=== PATIENT | male | born 1955 | race Caucasian/White ===

== ENCOUNTER → 2017-12-14 08:00 | Outpatient (CLI) | payer MEDICARE, MEDICAID, SELFPAY ==
--- NOTE | 2017-12-14 | DI.RAD.S_ITS ---
PROCEDURE: XR FOOT LT MIN 3V INDICATIONS: LEFT FOOT AND LEFT ANKLE PAIN TECHNIQUE: 3 views of the foot were acquired. COMPARISON: [facility], , FOOT 3V LEFT, 09/11/2017, 9:27. FINDINGS: Bones: Generalized osteopenia. Large traction enthesophyte base of the fifth metatarsal again noted. Hammertoe deformities. Mild degenerative joint disease at the first MTPJ. Flattening of the second metatarsal head again noted. No foot bone fractures or dislocations, healing fracture distal tibial shaft on the lateral view.. No suspicious bony lesions. Soft tissues: No tibiotalar joint effusion. Achilles tendon appears normal. IMPRESSION: 1. Healing fracture distal tibial shaft. No foot bone fractures seen. 2. Prominent enthesophytes fifth metatarsal base and posterior calcaneus. 3. Generalized osteopenia. Mild degenerative joint disease. Hammertoe deformities. Dictated by: Roberto Cuellar M.D. on 12/14/2017 at 8:40 Approved by: Roberto Cuellar M.D. on 12/14/2017 at 8:44
--- NOTE | 2017-12-14 | DI.RAD.S_ITS ---
PROCEDURE: XR ANKLE LT MIN 3V INDICATIONS: LEFT FOOT AND LEFT ANKLE PAIN TECHNIQUE: 3 views of the ankle were acquired. COMPARISON: [facility], , ANKLE 3 VIEWS LEFT, 09/11/2017, 9:27. FINDINGS: Bones: Irregular radiolucency with surrounding sclerosis and overlying callus formation involves the distal one third of the tibial diaphysis medially, compatible with healing stress fracture. Distal fibula appears intact. Degenerative tibiotalar joint disease unchanged. Large osteophytes of the posterior calcaneus again noted. Soft tissues: No tibiotalar joint effusion. Achilles tendon appears normal. IMPRESSION: 1. Healing stress fracture medial aspect of the distal tibial diaphysis. 2. Large calcaneal enthesophytes. 3. Tibiotalar arthritis. Dictated by: Roberto Cuellar M.D. on 12/14/2017 at 8:36 Approved by: Roberto Cuellar M.D. on 12/14/2017 at 8:40
== END ==
PROVIDERS: PCP Physician Assistant; Visit Provider Podiatrist
DX: M19.072 Primary osteoarthritis, left ankle and foot (principal); M77.32 Calcaneal spur, left foot; M25.572 Pain in left ankle and joints of left foot; M84.362A Stress fracture, left tibia, initial encounter for fracture; M85.872 Other specified disorders of bone density and structure, left ankle and foot; M20.42 Other hammer toe(s) (acquired), left foot
CPT/HCPCS: 73610; 73630

== ENCOUNTER → 2018-04-26 07:29 | Outpatient (CLI) | payer MEDICARE, MEDICAID, SELFPAY ==
[2018-04-26 08:44] LABS: Alanine Aminotransferase 26 IU/L (21-72); Albumin 4.5 g/dL (3.5-5.0); Albumin Globulin Ratio 1.5 (1.0-2.8); Alkaline Phosphatase 74 U/L (38-126); Aspartate Aminotransferase 22 IU/L (17-59); BUN Creatinine Ratio 13.8 (6-22); Bilirubin Total 0.9 mg/dL (0.2-1.3); Blood Urea Nitrogen 11 mg/dL (9-20); Calcium 9.1 mg/dL (8.4-10.2); Carbon Dioxide 34 mmol/L (22-32); Chloride 102 mmol/L (98-107); Cholesterol 114 mg/dL (140-199); Estimated Glomerular Filt Rate > 60.0 mL/min (>60); Glucose 84 mg/dL (80-110); HDL Cholesterol 30 mg/dL (40-60); HEMOLYSIS 44 (0-50); LDL Cholesterol Calculated 57 mg/dL (<100); Potassium 3.9 mmol/L (3.4-5.1); Sodium 143 mmol/L (137-145); Total Protein 7.5 g/dL (6.3-8.2); Triglycerides 135 mg/dL (35-150)
[2018-04-26 08:58] LABS: Hemoglobin A1C% w Est Avg Glu 6.4 % (4.0-6.0)
== END ==
PROVIDERS: PCP Physician Assistant; Visit Provider Physician Assistant
DX: E11.8 Type 2 diabetes mellitus with unspecified complications (principal); I10 Essential (primary) hypertension; E78.2 Mixed hyperlipidemia
CPT/HCPCS: 36415; 80053; 80061; 83036

== ENCOUNTER → 2018-06-29 10:05 | Outpatient (CLI) | payer MEDICARE, MEDICAID, SELFPAY ==
--- NOTE | 2018-06-29 10:21 | DI.CT.S_ITS ---
PROCEDURE: CT CHEST WO CON INDICATIONS: MYASTHENIA GRAVIS TECHNIQUE: Noncontrast 5 mm thick sections acquired from the pulmonary apices to the posterior costophrenic angles. 7 mm thick coronal and sagittal MIP reformats were then acquired. For radiation dose reduction, the following was used: automated exposure control, adjustment of mA and/or kV according to patient size. COMPARISON: [facility], CT, ABDOMEN/PELVIS WITH CONTRAST, 08/24/2011, 8:12. [facility], CT, ABDOMEN/PELVIS WITH CONTRAST, 04/06/2012, 17:22. FINDINGS: Image quality: Excellent. Lungs and pleura: There are lung nodules bilaterally. Three subcentimeter nodules are seen in the right middle lobe measuring 3-4 mm (series 3 image 36, 41 and 43). There is a 6 cm nodule in the left lower lobe (series 3 image 57). No acute air space opacities. No pleural effusions or pneumothorax. Central and peripheral airways are patent and normal in caliber. Mediastinum: Heart size is normal. No pericardial effusion. No mediastinal adenopathy by size criteria. Thoracic aorta and central pulmonary arteries are normal in size. Esophagus is normal in caliber. No hiatal hernia. Bones and chest wall: Multiple old fractures bilaterally. No vertebral body compression fractures. No axillary or supraclavicular adenopathy by size criteria. Thyroid gland is normal. Abdomen: Gallbladder is surgically absent. There are small air collections in the liver, presumably secondary to pneumobilia. There is a borderline enlarged periportal lymph node measuring 1.7 x 2.6 cm. IMPRESSION: 1. Bilateral pulmonary nodules. Recommend followup imaging (please see enclosed followup recommendation). 2. No mediastinal lymphadenopathy. 3. Cholecystectomy. Small air collections in liver is presumably secondary to pneumobilia but portal venous gas cannot be excluded. Patients with portal venous gas are usually critically ill. Recommend clinical correlation and followup. 4. Mild periportal lymphadenopathy. This finding is nonspecific and may be secondary to infectious, inflammatory or neoplastic etiology. Recommend clinical correlation and follow up. 5. Multiple old rib fractures bilaterally likely sequelae of old traumatic injuries. Fleischner Society criteria for SOLID lung nodule followup. Nodule size (mm)Low-risk patientHigh-risk patient?4No follow-up neededFollow-up at 12 mo; if no change, no further follow-up>8-7Czjtox-oa CT at 12 mo; if no change, no further follow-up needed.Initial follow-up CT at 6-12 mo, then 18-24 mo if no change. >6-8Initial follow-up CT at 6-12 mo, then 18-24 mo if no change. Initial follow-up CT at 3-6 mo, then 9-12 mo and 24 mo if no change. >8Follow-up CT at 3, 9, 24 mo. Or PET and/or biopsy.Same as for low-risk pts. Dictated by: Orion Knight M.D. on 06/29/2018 at 12:01 Approved by: Orion Knight M.D. on 06/29/2018 at 12:14
== END ==
PROVIDERS: Family Provider Physician Assistant; PCP Physician Assistant; Visit Provider Ophthalmology
DX: G70.00 Myasthenia gravis without (acute) exacerbation (principal); R91.8 Other nonspecific abnormal finding of lung field; Z90.49 Acquired absence of other specified parts of digestive tract; R59.0 Localized enlarged lymph nodes; Z87.81 Personal history of (healed) traumatic fracture
CPT/HCPCS: 71250

== ENCOUNTER → 2018-10-23 07:36 | Outpatient (CLI) | payer MEDICARE, MEDICAID, SELFPAY ==
[2018-10-23 09:13] LABS: Hemoglobin A1C% w Est Avg Glu 6.5 % (4.0-6.0)
[2018-10-23 09:45] LABS: Alanine Aminotransferase 24 IU/L (21-72); Albumin 4.1 g/dL (3.5-5.0); Albumin Globulin Ratio 1.6 (1.0-2.8); Alkaline Phosphatase 77 U/L (38-126); Aspartate Aminotransferase 15 IU/L (17-59); Bilirubin Total 0.4 mg/dL (0.2-1.3); Blood Urea Nitrogen 8 mg/dL (9-20); Calcium 9.1 mg/dL (8.4-10.2); Carbon Dioxide 30 mmol/L (22-32); Chloride 104 mmol/L (98-107); Cholesterol 105 mg/dL (140-199); Estimated Glomerular Filt Rate > 60.0 mL/min (>60); Globulin 2.6 g/dL (1.7-4.1); Glucose 120 mg/dL (80-110); HDL Cholesterol 30 mg/dL (40-60); HEMOLYSIS < 15 (0-50); LDL Cholesterol Calculated 39 mg/dL (<100); Potassium 3.6 mmol/L (3.4-5.1); Sodium 141 mmol/L (137-145); Total Protein 6.7 g/dL (6.3-8.2); Triglycerides 181 mg/dL (35-150)
[2018-10-23 12:07] LABS: Creatinine Urine Random 174.2 mg/dL
[2018-10-23 13:03] LABS: Microalbumi Creatinin Ratio Ur 239.3 ug/mg CR (<30); Microalbumin Urine Random 41.7 mg/dL (0-1.6)
== END ==
PROVIDERS: Family Provider Physician Assistant; PCP Physician Assistant; Visit Provider Physician Assistant
DX: E11.8 Type 2 diabetes mellitus with unspecified complications (principal); E78.2 Mixed hyperlipidemia; I10 Essential (primary) hypertension; Z79.4 Long term (current) use of insulin
CPT/HCPCS: 36415; 80053; 80061; 82043; 82570; 83036

== ENCOUNTER → 2019-02-12 07:12 | Outpatient (CLI) | payer MEDICARE, MEDICAID, SELFPAY ==
[2019-02-12 08:08] LABS: Hemoglobin A1C% w Est Avg Glu 6.9 % (4.0-6.0)
[2019-02-12 08:17] LABS: Alanine Aminotransferase 18 IU/L (21-72); Albumin 3.9 g/dL (3.5-5.0); Albumin Globulin Ratio 1.3 (1.0-2.8); Alkaline Phosphatase 86 U/L (38-126); Aspartate Aminotransferase 16 IU/L (17-59); BUN Creatinine Ratio 12.9 (6-22); Bilirubin Total 0.5 mg/dL (0.2-1.3); Blood Urea Nitrogen 9 mg/dL (9-20); Carbon Dioxide 30 mmol/L (22-32); Chloride 105 mmol/L (98-107); Cholesterol 113 mg/dL (140-199); Estimated Glomerular Filt Rate > 60.0 mL/min (>60); Globulin 2.9 g/dL (1.7-4.1); Glucose 127 mg/dL (80-110); HDL Cholesterol 33 mg/dL (40-60); HEMOLYSIS < 15 (0-50); LDL Cholesterol Calculated 49 mg/dL (<100); Potassium 3.9 mmol/L (3.4-5.1); Sodium 139 mmol/L (137-145); Total Protein 6.8 g/dL (6.3-8.2); Triglycerides 156 mg/dL (35-150)
[2019-02-12 09:10] LABS: Creatinine Urine Random 136.1 mg/dL
[2019-02-12 09:28] LABS: Microalbumin Urine Random 40.7 mg/dL (0-1.6)
== END ==
PROVIDERS: PCP Physician Assistant; Visit Provider Physician Assistant
DX: E11.29 Type 2 diabetes mellitus with other diabetic kidney complication (principal); E11.8 Type 2 diabetes mellitus with unspecified complications; I10 Essential (primary) hypertension; R80.9 Proteinuria, unspecified; Z79.4 Long term (current) use of insulin
CPT/HCPCS: 36415; 80053; 80061; 82043; 82570; 83036

== ENCOUNTER → 2019-04-05 14:10 | Outpatient (CLI) | payer MEDICARE, MEDICAID, SELFPAY ==
--- NOTE | 2019-04-05 14:12 | DI.US.S_ITS ---
PROCEDURE: US SOFT TISSUE HEAD AND NECK INDICATIONS: PAIN, SWELLING RT JAW/NECK TECHNIQUE: Real-time scanning was performed of the neck region of interest, with image documentation. COMPARISON: None. FINDINGS: Is a sharply demarcated 1.4 x 1.6 x 2.1 cm hypoechoic structure within the right parotid gland, which by appearance (absence of internal blood flow) would argue towards cyst or abscess. The absence of immediate adjacent hyperemia would argue towards cysts over abscess in this circumstance. IMPRESSION: Presumed cyst within the parotid gland, on the right. This cyst measures up to 2.1 cm. It could conceivably represent an unusual manifestation of abscess or even lymph node but that is considered much less likely. CT scanning with contrast may be warranted for more accurate assessment. Dictated by: Azar Farooq M.D. on 04/05/2019 at 15:54 Approved by: Azar Farooq M.D. on 04/05/2019 at 15:56
== END ==
PROVIDERS: PCP Physician Assistant; Visit Provider Nurse Practitioner
DX: L02.91 Cutaneous abscess, unspecified (principal); R68.84 Jaw pain; R22.1 Localized swelling, mass and lump, neck; M54.2 Cervicalgia
CPT/HCPCS: 76536

== ENCOUNTER → 2019-04-12 09:00 | Outpatient (CLI) | payer MEDICARE, MEDICAID, SELFPAY ==
[2019-04-12 10:42] LABS: BUN Creatinine Ratio 14.3 (6-22); Blood Urea Nitrogen 10 mg/dL (9-20); Calcium 9.2 mg/dL (8.4-10.2); Carbon Dioxide 30 mmol/L (22-32); Chloride 105 mmol/L (98-107); Estimated Glomerular Filt Rate > 60.0 mL/min (>60); Glucose 112 mg/dL (80-110); HEMOLYSIS < 15 (0-50); Potassium 4.3 mmol/L (3.4-5.1); Sodium 141 mmol/L (137-145)
--- NOTE | 2019-04-12 10:53 | DI.CT.S_ITS ---
PROCEDURE: CT SOFT TISSUE NECK W CON INDICATIONS: abscess TECHNIQUE: After the administration of intravenous contrast, 3.0 mm axial sections acquired from the sella to the aortic arch. Additional oblique axial 3.0 mm sections acquired through the pharynx. 3 mm thick coronal and sagittal reformats were generated. For radiation dose reduction, the following was used: automated exposure control. COMPARISON: [facility], SOFT TISSUE HEAD AND NECK, 04/05/2019, 15:09. FINDINGS: Image quality: Excellent. Lymph nodes: No enlarged lymph nodes seen throughout the neck. Vessels: Visualized vasculature appears patent. Neck spaces: The oropharynx, nasopharynx, and pharynx demonstrate no mucosal lesions. The vocal cords, false vocal cords, pyriform sinuses, epiglottis, vallecula, and tongue base all appear normal. Extramucosal spaces appear unremarkable. Glands: The submandibular glands appear normal. There is a rim-enhancing, low-attenuation mass within the inferior right parotid gland measuring 17 mm AP by 19 mm transverse. Areas of additional enhancing nodularity are noted along the inferior most aspect of the lesion. In addition, there is an enhancing soft tissue focus along the anterior superior right parotid gland measuring 1.1 cm AP by 1.1 cm transverse. Thyroid gland are unremarkable. Miscellaneous: Visualized brain and orbits appear normal. Lung apices appear clear. Superficial soft tissues appear normal. Bones: Calvarium and skull base osseous structures demonstrates somewhat mottled appearance. No priors are available for comparison. Visualized sinuses and mastoids appear unremarkable. IMPRESSION: 1. Rim-enhancing low attenuation mass within the inferior right parotid gland concerning for neoplasm. Other etiologies such as infection or inflammation is felt to be less likely given overall appearance and lack of significant surrounding inflammatory change. Further evaluation with biopsy is recommended. 2. Enhancing mass is noted in the anterior aspect of the right parotid gland. Further evaluation with biopsy, given the appearance of above described mass as well as differential which can include commonly identified pleomorphic adenoma in Warthin's tumor. 3. Somewhat mottled appearance of the calvarial and skull base osseous structures. No priors are available for comparison. They are not visualized in their entirety. Further evaluation with bone scan is recommended. Dictated by: Kathryn Evans M.D. on 04/12/2019 at 13:19 Approved by: Kathryn Evans M.D. on 04/12/2019 at 13:35
== END ==
PROVIDERS: PCP Physician Assistant; Visit Provider Nurse Practitioner
DX: Z01.818 Encounter for other preprocedural examination (principal); M27.2 Inflammatory conditions of jaws; R22.0 Localized swelling, mass and lump, head
CPT/HCPCS: 36415; 70470; 70491; 80048

== ENCOUNTER → 2019-04-30 07:18 | Outpatient (CLI) | payer MEDICARE, MEDICAID, SELFPAY ==
--- NOTE | 2019-04-30 07:23 | DI.NM.S_ITS ---
PROCEDURE: NM BONE SCAN WHOLE BODY RADIOPHARMACEUTICAL: 21.1 mCi Tc-99m MDP IV. INDICATIONS: Abnormal soft tissue CT neck; bone abnormality base of skull reported to raise concern for heterogeneity of the skull base calvarium, in a patient with a right parotid mass like structure. Evaluate for metastatic disease. TECHNIQUE: Delayed whole-body scintigrams were obtained approximately 3-4 hours after intravenous injection of radiotracer. Anterior and posterior views were acquired from vertex to feet. Additional left and right oblique views of the head and neck were obtained. COMPARISON: [facility], BONE SCAN WHOLE BODY, 11/08/2007, 11:51. [facility], CR, KNEE 3V LEFT, 06/13/2016, 10:31. [facility], CT, CT SOFT TISSUE NECK W CON, 04/12/2019, 10:57. FINDINGS: In the area of prior CT concern from 04/12/19 the skull base appears free of abnormal isotope uptake. Mild elevated uptake is symmetric along the ethmoid air cell regions bilaterally, where minimal mucosal thickening can be seen on the prior CT scanning, presumably inflammatory in origin. Note is made of degenerative changes along the thoracic spine, and at the lower lumbosacral spine greater on the left than the right. Patellar isotope deposition is prominent within the right patella, and there is mild heterogeneity of isotope uptake at the left knee joint and tibial diaphysis, in this patient with prior trauma and a medullary stacey through that area. Prominent asymmetric left slightly greater than right degenerative changes at the shoulders. IMPRESSION: No osseous metastatic disease is found. Degenerative changes the likely cause for the prominent uptake at the right patella but trauma could explain this appearance. Mild heterogeneity of the left tibial isotope deposition, consistent with the presence of a medullary stacey through that area. Dictated by: Azar Farooq M.D. on 04/30/2019 at 16:24 Approved by: Azar Farooq M.D. on 04/30/2019 at 16:30
== END ==
PROVIDERS: PCP Physician Assistant; Visit Provider Physician Assistant
DX: R93.0 Abnormal findings on diagnostic imaging of skull and head, not elsewhere classified (principal); M89.9 Disorder of bone, unspecified
CPT/HCPCS: 78306; A9503

== ENCOUNTER → 2019-05-06 09:59 | Outpatient (CLI) | payer MEDICARE, MEDICAID, SELFPAY ==
[2019-05-06 12:09] LABS: Add Manual Diff / Slide Review NO; Basophils Absolute Auto 100 /uL (0-100); Basophils Percent Auto 0.9 % (0-2); Eosinophils Absolute Auto 300 /uL (0-450); Eosinophils Percent Auto 4.2 % (2-4); Hematocrit 44.3 % (41-53); Hemoglobin 15.1 g/dL (13.5-17.5); Lymphocytes Absolute Auto 2400 /uL (1100-4500); Lymphocytes Percent Auto 33.9 % (25-40); Mean Corpuscular HGB Conc 34.1 % (30-36); Mean Corpuscular Hemoglobin 30.6 PG (26-34); Mean Corpuscular Volume 89.9 fL (80-100); Monocytes Absolute Auto 500 /uL (0-900); Monocytes Percent Auto 7.7 % (3-14); Neutrophils Absolute Auto 3700 /uL (1500-7000); Neutrophils Percent Auto 53.3 % (50-75); Platelet Count 201 X10^3/uL (150-400); Red Blood Cell Count 4.93 X10^6/uL (4.5-5.9); Red Cell Distribution Width 15.3 % (11.6-14.8)
[2019-05-06 12:17] LABS: Hemoglobin A1C% w Est Avg Glu 6.5 % (4.0-6.0)
[2019-05-06 12:47] LABS: Alanine Aminotransferase 27 IU/L (21-72); Albumin 4.3 g/dL (3.5-5.0); Albumin Globulin Ratio 1.5 (1.0-2.8); Alkaline Phosphatase 80 U/L (38-126); Aspartate Aminotransferase 25 IU/L (17-59); BUN Creatinine Ratio 17.5 (6-22); Bilirubin Total 0.7 mg/dL (0.2-1.3); Blood Urea Nitrogen 14 mg/dL (9-20); Calcium 9.4 mg/dL (8.4-10.2); Carbon Dioxide 32 mmol/L (22-32); Chloride 106 mmol/L (98-107); Cholesterol 121 mg/dL (140-199); Estimated Glomerular Filt Rate > 60.0 mL/min (>60); Globulin 2.8 g/dL (1.7-4.1); Glucose 112 mg/dL (80-110); HDL Cholesterol 29 mg/dL (40-60); HEMOLYSIS < 15 (0-50); LDL Cholesterol Calculated 69 mg/dL (<100); Potassium 4.3 mmol/L (3.4-5.1); Sodium 143 mmol/L (137-145); Total Protein 7.1 g/dL (6.3-8.2); Triglycerides 113 mg/dL (35-150)
[2019-05-06 13:05] LABS: Prostate Specific Antigen Scrn 0.773 ng/mL (0.1-4.0)
[2019-05-06 15:18] LABS: Creatinine Urine Random 254.5 mg/dL
[2019-05-06 15:30] LABS: Vitamin D 25 Hydroxy (D3) 50.1 ng/mL (30.0-100.0)
[2019-05-06 16:08] LABS: Microalbumi Creatinin Ratio Ur 192.9 ug/mg CR (<30); Microalbumin Urine Random 49.1 mg/dL (0-1.6)
== END ==
PROVIDERS: PCP Physician Assistant; Visit Provider Physician Assistant
DX: Z12.5 Encounter for screening for malignant neoplasm of prostate (principal); M81.0 Age-related osteoporosis without current pathological fracture; E11.8 Type 2 diabetes mellitus with unspecified complications; E78.2 Mixed hyperlipidemia; G70.00 Myasthenia gravis without (acute) exacerbation; I10 Essential (primary) hypertension
CPT/HCPCS: 36415; 80053; 80061; 82043; 82306; 82570; 83036; 85025; G0103

== ENCOUNTER → 2019-07-08 07:59 | Outpatient (CLI) | payer MEDICARE, MEDICAID, SELFPAY ==
--- NOTE | 2019-07-08 09:00 | DI.CT.S_ITS ---
PROCEDURE: CT CHEST WO CON INDICATIONS: Pulmonary nodules - follow up on 06/2018 CT TECHNIQUE: Noncontrast 2.0-2.5 mm thick sections acquired from the pulmonary apices to the posterior costophrenic angles. 7 mm thick axial MIP and 5 mm coronal and sagittal reformats were then acquired. A low radiation dose technique was utilized. COMPARISON: , CT, CT CHEST WO CON, 06/29/2018, 10:16. FINDINGS: Image quality: Diagnostic, given the low radiation dose technique. Lungs and pleura: Right middle lobe lung nodules measuring 6 mm (3/187), 5 mm (3/212), and 4 mm (3/219), are stable when measured on lung windows. 10 mm solid left posterior medial lung base nodule (3/284), is also stable. An ovoid nodule in the medial left upper lobe (3/110) measures 1.3 x 1.0 cm, stable size. 2 tiny right posterior lateral lower lobe subpleural high density nodules are stable. No new nodules. No acute airspace disease. Mild central peribronchial thickening, particularly in the right lower lobe is present. No pleural effusions or calcified pleural plaques. Mediastinum: Heart size is normal. No pericardial effusion. No mediastinal adenopathy by size criteria. Thoracic aorta and central pulmonary arteries are normal in size. Esophagus is normal in caliber. No hiatal hernia. Bones and chest wall: Deformities of remote, healed bilateral posterolateral rib fractures. Dense bridging osteophytosis in the mid thoracic spine. No suspicious bony lesions. No vertebral body compression fractures. No axillary or supraclavicular adenopathy by size criteria. Thyroid gland appears normal. Abdomen: Visualized upper abdomen demonstrates cholecystectomy and scant pneumobilia. IMPRESSION: 1. Stable bilateral lung nodules. Continual annual followup CT until 2 year stability is reached. 2. Mild right lower lobe peribronchial thickening suggesting bronchitis. Correlate clinically. 3. Dense bridging osteophytosis in the thoracic spine. Fleischner Society criteria for SOLID lung nodule followup. Nodule size (mm)Low-risk patientHigh-risk patient<6 (single or multiple)No routine followup.Optional CT at 12 months. 6-8 (single or multiple)CT at 6-12 months, then optional CT at 18-24 mo.CT at 6-12 months, then CT at 18-24 months. >8 (single)CT at 3 months, PET-CT, or biopsy. Same as for low-risk pts. >8 (multiple)CT at 3-6 months, then optional CT at 18-24 mo.CT at 3-6 months, then CT at 18-24 months. Recommendations do not apply to lung cancer screening, patients with immunosuppression, or patients with known primary cancer. Dictated by: Denisse Luther M.D. on 07/08/2019 at 14:43 Approved by: Denisse Luther M.D. on 07/08/2019 at 14:57
== END ==
PROVIDERS: PCP Physician Assistant; Visit Provider Physician Assistant
DX: R91.8 Other nonspecific abnormal finding of lung field (principal); M25.78 Osteophyte, vertebrae
CPT/HCPCS: 71250

== ENCOUNTER → 2019-12-25 07:40 | Outpatient (CLI) | payer MEDICARE, MEDICAID, SELFPAY ==
[2019-12-25 08:32] LABS: Hemoglobin A1C% w Est Avg Glu 6.5 % (4.0-6.0)
[2019-12-25 08:34] LABS: Alanine Aminotransferase 19 IU/L (<50); Albumin 4.1 g/dL (3.5-5.0); Albumin Globulin Ratio 1.4 (1.0-2.8); Alkaline Phosphatase 78 U/L (38-126); Aspartate Aminotransferase 22 IU/L (17-59); BUN Creatinine Ratio 16.4 (6-22); Bilirubin Total 0.5 mg/dL (0.2-1.3); Blood Urea Nitrogen 12 mg/dL (9-20); Calcium 9.3 mg/dL (8.4-10.2); Carbon Dioxide 31 mmol/L (22-32); Chloride 108 mmol/L (98-107); Cholesterol 103 mg/dL (140-199); Estimated Glomerular Filt Rate > 60.0 mL/min (>60); Globulin 2.9 g/dL (1.7-4.1); Glucose 119 mg/dL (80-110); HDL Cholesterol 24 mg/dL (40-60); HEMOLYSIS < 15 (0-50); LDL Cholesterol Calculated 51 mg/dL (<100); Potassium 4.2 mmol/L (3.4-5.1); Sodium 142 mmol/L (137-145); Triglycerides 142 mg/dL (35-150)
[2019-12-25 08:51] LABS: Free T3, Triiodothyronine Free 3.64 pg/mL (2.77-5.27); Free T4, Direct Thyroxine 0.86 ng/dL (0.78-2.19)
[2019-12-25 09:04] LABS: Thyroid Stimulating Hormone 1.72 uIU/mL (0.47-4.68)
[2019-12-25 12:19] LABS: Creatinine Urine Random 83.9 mg/dL
[2019-12-25 12:36] LABS: Microalbumi Creatinin Ratio Ur 252.6 ug/mg CR (<30); Microalbumin Urine Random 21.2 mg/dL (0-1.6)
== END ==
PROVIDERS: PCP Nurse Practitioner; Referring Provider Nurse Practitioner; Visit Provider Nurse Practitioner
DX: E11.8 Type 2 diabetes mellitus with unspecified complications (principal); E66.01 Morbid (severe) obesity due to excess calories; E78.2 Mixed hyperlipidemia; I10 Essential (primary) hypertension; Z79.899 Other long term (current) drug therapy
CPT/HCPCS: 36415; 80053; 80061; 82043; 82570; 83036; 84439; 84443; 84481

== ENCOUNTER → 2020-03-03 07:45 | Outpatient (CLI) | payer MEDICARE, MEDICAID, SELFPAY ==
[2020-03-03 09:04] LABS: Alanine Aminotransferase 19 IU/L (<50); Albumin Globulin Ratio 1.5 (1.0-2.8); Alkaline Phosphatase 82 U/L (38-126); Aspartate Aminotransferase 18 IU/L (17-59); BUN Creatinine Ratio 16.9 (6-22); Bilirubin Total 0.8 mg/dL (0.2-1.3); Blood Urea Nitrogen 12 mg/dL (9-20); Carbon Dioxide 31 mmol/L (22-32); Chloride 107 mmol/L (98-107); Cholesterol 105 mg/dL (140-199); Estimated Glomerular Filt Rate > 60.0 mL/min (>60); Globulin 2.6 g/dL (1.7-4.1); Glucose 106 mg/dL (80-110); HDL Cholesterol 31 mg/dL (40-60); HEMOLYSIS < 15 (0-50); LDL Cholesterol Calculated 52 mg/dL (<100); Potassium 4.1 mmol/L (3.4-5.1); Sodium 139 mmol/L (137-145); Total Protein 6.6 g/dL (6.3-8.2); Triglycerides 110 mg/dL (35-150)
== END ==
PROVIDERS: PCP Nurse Practitioner; Referring Provider Hospitalist; Visit Provider Hospitalist
DX: E78.5 Hyperlipidemia, unspecified (principal); I25.118 Atherosclerotic heart disease of native coronary artery with other forms of angina pectoris
CPT/HCPCS: 36415; 80053; 80061

== ENCOUNTER → 2020-05-11 06:22 | Outpatient (CLI) | payer MEDICARE, MEDICAID, SELFPAY ==
--- NOTE | 2020-05-11 07:07 | DI.CT.S_ITS ---
PROCEDURE: CT CHEST WO CON INDICATIONS: Pulmonary nodules - follow up on 06/2019 CT TECHNIQUE: Noncontrast 2.0-2.5 mm thick sections acquired from the pulmonary apices to the posterior costophrenic angles. 7 mm thick axial MIP and 5 mm coronal and sagittal reformats were then acquired. A low radiation dose technique was utilized. COMPARISON: [facility], CT, CT CHEST WO CON, 06/29/2018, 10:16. [facility], CT, CT CHEST WO CON, 07/08/2019, 8:10. FINDINGS: Image quality: Diagnostic, given the low radiation dose technique. Lungs and pleura: A few small pulmonary nodules. For example: -right middle lobe subpleural 6 mm, (3/185), unchanged since 06/29/2018. -right middle lobe subpleural 5 mm, (3/220), unchanged since 2018. Unchanged since 2011. -left upper lobe medially 1.3 x 0.9 cm, (3/108), unchanged since 2018. -left lower lobe juxta diaphragmatic 0.9 x 0.7 cm, (3/268), unchanged since 2018. More remotely is 0.7 x 0.6 cm in 2011. No new or enlarging pulmonary nodules. A few calcified granuloma. No acute airspace opacity. No pleural effusion. No pneumothorax. Airways are clear. Mediastinum: Heart size is normal. No pericardial effusion. No mediastinal adenopathy by size criteria. Thoracic aorta and central pulmonary arteries are normal in size. Esophagus is normal in caliber. No hiatal hernia. Bones and chest wall: No suspicious bony lesions. No vertebral body compression fractures. Multilevel anterior vertebral body bridging osteophytes. 1 prior bilateral rib fractures. No axillary or supraclavicular adenopathy by size criteria. Thyroid gland is unremarkable. Abdomen: Pneumobilia is again seen. Hepatic steatosis. Adrenal glands partially visualized. No free fluid in the upper abdomen. IMPRESSION: 1. Stable bilateral pulmonary nodules since at least 06/29/2018 (nearly 2 years). Largest measuring 1.1 cm mean diameter in the left upper lobe. Some of the inferiorly located nodules are seen dating back to 2011. 2. No new or enlarging pulmonary nodules. 3. No adenopathy. 4. No acute airspace opacity. Fleischner Society criteria for SOLID lung nodule followup. Nodule size (mm)Low-risk patientHigh-risk patient<6 (single or multiple)No routine followup.Optional CT at 12 months. 6-8 (single or multiple)CT at 6-12 months, then optional CT at 18-24 mo.CT at 6-12 months, then CT at 18-24 months. >8 (single)CT at 3 months, PET-CT, or biopsy. Same as for low-risk pts. >8 (multiple)CT at 3-6 months, then optional CT at 18-24 mo.CT at 3-6 months, then CT at 18-24 months. Fleischner Society criteria for SUB-SOLID lung nodule followup. Solitary pure ground-glass nodules<6 mm (ground glass or part solid)No followup needed. 6 mm or larger (ground glass)CT at 6-12 months to confirm persistence, then CT every 2 years until 5 years.6 mm or larger (part solid)CT at 3-6 months to confirm persistence, then annual CT until 5 years if unchanged and solid component remains <6 mm. Multiple sub-solid nodules<6 mmCT at 3-6 months, then CT consider at 2 & 4 years for high risk patients. [address] at 3-6 months. Subsequent management based on most suspicious lesions. Recommendations do not apply to lung cancer screening, patients with immunosuppression, or patients with known primary cancer. Dictated by: Blair Rodriguez M.D. on 05/11/2020 at 9:33 Approved by: Blair Rodriguez M.D. on 05/11/2020 at 9:51
== END ==
PROVIDERS: PCP Nurse Practitioner; Referring Provider Nurse Practitioner; Visit Provider Nurse Practitioner
DX: R91.8 Other nonspecific abnormal finding of lung field (principal)
CPT/HCPCS: 71250

== ENCOUNTER → 2020-06-19 07:39 | Outpatient (CLI) | payer MEDICARE, MEDICAID, SELFPAY ==
[2020-06-19 08:33] LABS: Alanine Aminotransferase 15 IU/L (<50); Albumin 4.2 g/dL (3.5-5.0); Albumin Globulin Ratio 1.4 (1.0-2.8); Alkaline Phosphatase 79 U/L (38-126); Aspartate Aminotransferase 17 IU/L (17-59); BUN Creatinine Ratio 19.7 (6-22); Bilirubin Total 0.6 mg/dL (0.2-1.3); Blood Urea Nitrogen 13 mg/dL (9-20); Calcium 9.4 mg/dL (8.4-10.2); Carbon Dioxide 35 mmol/L (22-32); Chloride 108 mmol/L (98-107); Cholesterol 112 mg/dL (140-199); Estimated Glomerular Filt Rate > 60.0 mL/min (>60); Globulin 2.9 g/dL (1.7-4.1); Glucose 109 mg/dL (80-110); HDL Cholesterol 29 mg/dL (40-60); HEMOLYSIS < 15 (0-50); LDL Cholesterol Calculated 60 mg/dL (<100); Potassium 4.2 mmol/L (3.4-5.1); Sodium 139 mmol/L (137-145); Total Protein 7.1 g/dL (6.3-8.2); Triglycerides 116 mg/dL (35-150)
[2020-06-19 08:36] LABS: Hemoglobin A1C% w Est Avg Glu 6.4 % (4.0-6.0)
[2020-06-19 09:15] LABS: Free T3, Triiodothyronine Free 3.19 pg/mL (2.77-5.27); Free T4, Direct Thyroxine 0.83 ng/dL (0.78-2.19)
[2020-06-19 09:29] LABS: Thyroid Stimulating Hormone 1.82 uIU/mL (0.47-4.68)
[2020-06-19 09:32] LABS: Creatinine Urine Random 209.1 mg/dL; Microalbumi Creatinin Ratio Ur 186.5 ug/mg CR (<30)
== END ==
PROVIDERS: PCP Nurse Practitioner; Referring Provider Nurse Practitioner; Visit Provider Nurse Practitioner
DX: E11.42 Type 2 diabetes mellitus with diabetic polyneuropathy (principal); E11.8 Type 2 diabetes mellitus with unspecified complications; E66.01 Morbid (severe) obesity due to excess calories; E78.2 Mixed hyperlipidemia; I10 Essential (primary) hypertension; Z79.4 Long term (current) use of insulin
CPT/HCPCS: 36415; 80053; 80061; 82043; 82570; 83036; 84439; 84443; 84481

== ENCOUNTER → 2020-09-18 07:38 | Outpatient (CLI) | payer MEDICARE, MEDICAID, SELFPAY ==
[2020-09-18 08:54] LABS: Hemoglobin A1C% w Est Avg Glu 6.8 % (4.0-6.0)
[2020-09-18 09:02] LABS: Alanine Aminotransferase 24 IU/L (<50); Albumin 4.1 g/dL (3.5-5.0); Albumin Globulin Ratio 1.6 (1.0-2.8); Alkaline Phosphatase 80 U/L (38-126); Aspartate Aminotransferase 25 IU/L (17-59); BUN Creatinine Ratio 20.3 (6-22); Bilirubin Total 0.8 mg/dL (0.2-1.3); Blood Urea Nitrogen 14 mg/dL (9-20); Calcium 9.2 mg/dL (8.4-10.2); Carbon Dioxide 33 mmol/L (22-32); Chloride 104 mmol/L (98-107); Estimated Glomerular Filt Rate > 60.0 mL/min (>60); Globulin 2.6 g/dL (1.7-4.1); Glucose 105 mg/dL (80-110); HEMOLYSIS < 15 (0-50); Potassium 4.1 mmol/L (3.4-5.1); Sodium 139 mmol/L (137-145); Total Protein 6.7 g/dL (6.3-8.2)
== END ==
PROVIDERS: PCP Nurse Practitioner; Referring Provider Nurse Practitioner; Visit Provider Nurse Practitioner
DX: E11.8 Type 2 diabetes mellitus with unspecified complications (principal); E78.2 Mixed hyperlipidemia; I10 Essential (primary) hypertension; Z79.4 Long term (current) use of insulin; Z79.899 Other long term (current) drug therapy
CPT/HCPCS: 36415; 80053; 83036

== ENCOUNTER → 2020-09-22 09:47 | Outpatient (CLI) | payer MEDICARE, MEDICAID, SELFPAY ==
[2020-09-26 15:08] LABS: Percent Free Testosterone 2.07 % (1.50-4.20); Testosterone Free 9.38 ng/dL (5.00-21.00); Testosterone Total 453.2 ng/dL (264.0-916.0)
== END ==
PROVIDERS: PCP Nurse Practitioner; Referring Provider Nurse Practitioner; Visit Provider Nurse Practitioner
DX: E66.01 Morbid (severe) obesity due to excess calories (principal); G89.29 Other chronic pain; R53.83 Other fatigue
CPT/HCPCS: 36415; 84402; 84403

== ENCOUNTER → 2021-01-12 09:37 | Outpatient (CLI) | payer MEDICARE, MEDICAID, SELFPAY ==
[2021-01-12 11:02] LABS: Hemoglobin A1C% w Est Avg Glu 6.7 % (4.0-6.0)
== END ==
PROVIDERS: PCP Nurse Practitioner; Referring Provider Nurse Practitioner; Visit Provider Nurse Practitioner
DX: E11.8 Type 2 diabetes mellitus with unspecified complications (principal); Z79.4 Long term (current) use of insulin
CPT/HCPCS: 36415; 83036

== ENCOUNTER → 2021-04-13 08:48 | Outpatient (CLI) | payer MEDICARE, MEDICAID, SELFPAY ==
[2021-04-13 10:23] LABS: Alanine Aminotransferase 25 IU/L (<50); Albumin 3.9 g/dL (3.5-5.0); Albumin Globulin Ratio 1.4 (1.0-2.8); Alkaline Phosphatase 61 U/L (38-126); Aspartate Aminotransferase 25 IU/L (17-59); BUN Creatinine Ratio 23.7 (6-22); Bilirubin Total 0.7 mg/dL (0.2-1.3); Bilirubin Unconjugated 0.6 mg/dL (0.0-1.1); Blood Urea Nitrogen 14 mg/dL (9-20); Calcium 9.1 mg/dL (8.4-10.2); Carbon Dioxide 33 mmol/L (22-32); Chloride 106 mmol/L (98-107); Cholesterol 111 mg/dL (140-199); Estimated Glomerular Filt Rate > 60.0 mL/min (>60); Globulin 2.8 g/dL (1.7-4.1); Glucose 90 mg/dL (80-110); HDL Cholesterol 35 mg/dL (40-60); HEMOLYSIS 21 (0-50); LDL Cholesterol Calculated 50 mg/dL (<100); Potassium 4.1 mmol/L (3.4-5.1); Sodium 140 mmol/L (137-145); Total Protein 6.7 g/dL (6.3-8.2); Triglycerides 131 mg/dL (35-150)
[2021-04-13 10:32] LABS: Free T3, Triiodothyronine Free 3.92 pg/mL (2.77-5.27); Free T4, Direct Thyroxine 0.97 ng/dL (0.78-2.19)
[2021-04-13 10:45] LABS: Prostate Specific Antigen 0.119 ng/mL (0.10-4.00); Thyroid Stimulating Hormone 1.49 uIU/mL (0.47-4.68)
[2021-04-13 11:11] LABS: Creatinine Urine Random 180.9 mg/dL
[2021-04-13 11:28] LABS: Microalbumi Creatinin Ratio Ur 211.1 ug/mg CR (<30); Microalbumin Urine Random 38.2 mg/dL (0-1.6)
== END ==
PROVIDERS: PCP Nurse Practitioner; Referring Provider Nurse Practitioner; Visit Provider Nurse Practitioner
DX: E11.8 Type 2 diabetes mellitus with unspecified complications (principal); E78.2 Mixed hyperlipidemia; Z79.899 Other long term (current) drug therapy; I10 Essential (primary) hypertension; Z79.4 Long term (current) use of insulin; Z12.5 Encounter for screening for malignant neoplasm of prostate
CPT/HCPCS: 36415; 80053; 80061; 80076; 82043; 82570; 84153; 84439; 84443; 84481; G0103

== ENCOUNTER → 2021-07-30 08:49 | Outpatient (CLI) | payer MEDICARE, MEDICAID, SELFPAY ==
[2021-07-30 10:20] LABS: Hemoglobin A1C% w Est Avg Glu 6.5 % (4.0-6.0)
[2021-07-30 10:34] LABS: Creatinine Urine Random 124.4 mg/dL
[2021-07-30 10:44] LABS: Alanine Aminotransferase 19 IU/L (<50); Albumin Globulin Ratio 1.5 (1.0-2.8); Alkaline Phosphatase 80 U/L (38-126); Aspartate Aminotransferase 20 IU/L (17-59); BUN Creatinine Ratio 12.8 (6-22); Bilirubin Total 0.7 mg/dL (0.2-1.3); Blood Urea Nitrogen 10 mg/dL (9-20); Calcium 9.6 mg/dL (8.4-10.2); Carbon Dioxide 33 mmol/L (22-32); Chloride 107 mmol/L (98-107); Cholesterol 128 mg/dL (140-199); Estimated Glomerular Filt Rate > 60.0 mL/min (>60); Globulin 2.6 g/dL (1.7-4.1); Glucose 113 mg/dL (80-110); HDL Cholesterol 37 mg/dL (40-60); HEMOLYSIS < 15 (0-50); LDL Cholesterol Calculated 73 mg/dL (<100); Potassium 4.5 mmol/L (3.4-5.1); Sodium 142 mmol/L (137-145); Total Protein 6.6 g/dL (6.3-8.2); Triglycerides 92 mg/dL (35-150)
[2021-07-30 10:52] LABS: Microalbumi Creatinin Ratio Ur 394.6 ug/mg CR (<30); Microalbumin Urine Random 49.1 mg/dL (0-1.6)
[2021-08-04 09:42] LABS: Cholesterol, Total 142 mg/dL (100-199); HDL-Cholesterol 46 mg/dL (>39); HDL-Particle (Total) 30.3 umol/L (>=30.5); LDL Particle 1061 nmol/L (<1000); LDL Size 20.7 nm (>20.5); LDL-Cholsterol 78 mg/dL (0-99); LP-IR Score 49 (<=45); Small LDL- Particle 579 nmol/L (<=527); Triglycerides 96 mg/dL (0-149)
== END ==
PROVIDERS: PCP Nurse Practitioner; Referring Provider Specialist; Visit Provider Specialist
DX: E11.8 Type 2 diabetes mellitus with unspecified complications (principal); E78.5 Hyperlipidemia, unspecified; E78.2 Mixed hyperlipidemia; I10 Essential (primary) hypertension; Z79.4 Long term (current) use of insulin; Z79.899 Other long term (current) drug therapy
CPT/HCPCS: 36415; 80053; 80061; 82043; 82570; 83036; 83704

== ENCOUNTER → 2021-08-02 10:35 | Outpatient (CLI) | payer MEDICARE, MEDICAID, SELFPAY ==
--- NOTE | 2021-08-02 10:38 | DI.RAD.S_ITS ---
PROCEDURE: XR CHEST 2V INDICATIONS: Productive cough TECHNIQUE: 2 views of the chest were acquired. COMPARISON: [facility], CT, CT CHEST WO CON, 05/11/2020, 7:01. FINDINGS: Surgical changes and devices: None. Lungs and pleura: No lung consolidation. Slight prominence of the interstitial noted in the lungs bilaterally. No pleural effusions or pneumothorax. Mediastinum: Mediastinal contours are normal. Heart size is normal. Bones and chest wall: Chronic bilateral rib fractures are unchanged compared to prior CT scan. No suspicious bony abnormalities. Soft tissues appear unremarkable. IMPRESSION: Mild bilateral lung interstitial prominence suspicious for pulmonary edema or atypical pneumonia. Dictated by: Shruti Vazquez MD, PhD on 08/02/2021 at 15:16 Approved by: Shruti Vazquez MD, PhD on 08/02/2021 at 15:18
== END ==
PROVIDERS: PCP Nurse Practitioner; Referring Provider Nurse Practitioner; Visit Provider Nurse Practitioner
DX: R05.9 Cough, unspecified (principal)
CPT/HCPCS: 71046

== ENCOUNTER → 2021-09-17 14:36 | Outpatient (CLI) | payer MEDICARE, MEDICAID, SELFPAY ==
--- NOTE | 2021-09-17 | DI.ECHO.S_ITS ---
[place] [facility]---------+ [facility] +---------+ : : [address] : : : : [id number] : : : : Phone: [phone]+ Echocardiogram Report + + :Name: VINCENZO TAYLOR Study Date: 09/17/2021 Height: 69 in : :[facility] ReadingLocation: Weight: 298 lb : : Gender: Male BSA: 2.4 m2 : :: 1955 Age: 66 yrs BP: 139/84 mmHg: :Reason For Study: Conduction Disorder, RBBB : :Ordering Physician: Joby : :Margareth Lund Performed By: Omayra Wisdom : + + Interpretation Summary Left ventricular systolic function appears normal with an estimated ejection fraction of 60 to 65% without any focal wall motion abnormality. Left ventricular volumes are grossly normal with borderline LVH but diastolic function is likely normal with normal filling pressures. The right ventricle appears normal in size and systolic function. Right ventricular systolic pressure is estimated at 37 mmHg with a CVP of 15 mmHg. The left atrium is borderline enlarged while the right atrium is mild to moderately enlarged. There is no significant functional valvular abnormality. The aortic root and ascending aorta are moderately enlarged while the aortic arch is mildly enlarged. The patient was in sinus bradycardia at 46-55 bpm during the exam Procedure: A two-dimensional transthoracic echocardiogram with color flow and Doppler was performed. The study quality was technically adequate. There is no prior echocardiogram noted for this patient. The patient was in sinus bradycardia with heart rates between 46-55 bpm during the exam. Left Ventricle: The left ventricle is normal in size. The estimated left ventricular end diastolic volume is 95 ml. Left ventricular wall thickness is at the upper limits of normal. The ejection fraction is estimated to be 60- 65%. Left ventricular systolic function appears normal without focal wall motion abnormalities. Diastolic parameters suggest probable normal left ventricular diastolic function and normal filling pressures. Right Ventricle: The right ventricle is normal in size and function. Atria: The left atrium is borderline dilated. The right atrium is mild to moderately dilated. There is no Doppler evidence for an interatrial shunt. Mitral Valve: There is mild mitral annular calcification. There is slight calcification extending into the subvalvular apparatus. There is trace mitral regurgitation. Aortic Valve: The aortic valve is trileaflet. The aortic valve opens well. No aortic regurgitation is present. Tricuspid Valve: The tricuspid valve leaflets are thin and pliable. There is a trace or physiologic amount of tricuspid regurgitation. The right ventricular systolic pressure is estimated to be at least 37 mmHg based on an estimated right atrial pressure of 15 mm Hg. Pulmonic Valve: The pulmonic valve is not well visualized. There is a trace or physiologic amount of pulmonic regurgitation. There is no significant valvular heart disease. Great Vessels: The aortic root is moderately dilated. The ascending aorta is moderately enlarged. The aortic arch is mildly enlarged. The IVC is dilated (diameter is greater than 2.1 cm) and it collapses less than 50% with a sniff. This suggests a high right atrial pressure of 15 mm Hg. Pericardium/ Pleura There is no pericardial effusion. MMode/2D Measurements & Calculations LVIDd: 6.0 cm LVOT diam: 2.4 cm LVIDs: 4.4 cm Ao root diam: 4.4 cm FS: 26.8 % asc Aorta Diam: 4.5 cm EPSS: 0.43 cm Ao Arch Diam (Prox Trans): 3.3 cm IVSd: 1.1 cm LVPWd: 1.0 cm LV snyder. diameter/BSA (cm/m^2): 2.4 LV sys. diameter/BSA (cm/m^2): 1.8 LA A2 area: 22.8 cm2 RA long axis: 6.7 cm LA A4 area: 29.4 cm2 RA area: 27.5 cm2 LA length (vol): 6.9 cm RA vol: 96.2 ml LA vol: 82.7 ml RA : 39.3 ml/m2 LA vol index: 33.8 ml/m2 IVC diam: 3.5 cm RVD1 (basal): 4.4 cm TAPSE: 3.0 cm Doppler Measurements & Calculations Ao V2 max: 147.1 cm/sec LVOT Max Eber: 139.1 cm/sec Ao V2 mean: 102.9 cm/sec LV V1 max P.7 mmHg Ao max P.7 mmHg LV V1 VTI: 27.7 cm Ao mean P.6 mmHg STEPHANIA(I,D): 4.1 cm2 Ao V2 VTI: 31.7 cm STEPHANIA(V,D): 4.4 cm2 sev ratio: 0.87 STEPHANIA indexed to BSA (cm^2/m^2): 1.7 MV E max eber: 83.9 cm/sec TR max eber: 235.0 cm/sec MV A max eber: 75.6 cm/sec TR max P.1 mmHg MV E/A: 1.1 PA V2 max: 82.4 cm/sec Med Peak E' Eber: 6.1 cm/sec PA V2 mean: 62.2 cm/sec E/E' med: 13.8 PA mean P.7 mmHg Lat Peak E' Eber: 9.0 cm/sec PA pr(Accel): 34.5 mmHg E/E' lat: 9.4 E/e' average: 11.6 MV dec time: 0.20 sec SV(LVOT): 129.8 ml Reading Physician:05:56 PM
== END ==
PROVIDERS: PCP Nurse Practitioner; Referring Provider Specialist; Visit Provider Specialist
DX: I77.810 Thoracic aortic ectasia (principal); I45.10 Unspecified right bundle-branch block; I25.118 Atherosclerotic heart disease of native coronary artery with other forms of angina pectoris; R61 Generalized hyperhidrosis; R06.00 Dyspnea, unspecified
CPT/HCPCS: 93306

== ENCOUNTER → 2021-09-28 07:18 | Outpatient (CLI) | payer MEDICARE, MEDICAID, SELFPAY ==
[2021-09-28 09:08] LABS: Hemoglobin A1C% w Est Avg Glu 6.5 % (4.0-6.0)
[2021-09-28 09:12] LABS: Alanine Aminotransferase 23 IU/L (<50); Albumin 4.1 g/dL (3.5-5.0); Albumin Globulin Ratio 1.5 (1.0-2.8); Alkaline Phosphatase 86 U/L (38-126); Aspartate Aminotransferase 26 IU/L (17-59); BUN Creatinine Ratio 16.9 (6-22); Bilirubin Total 0.9 mg/dL (0.2-1.3); Blood Urea Nitrogen 12 mg/dL (9-20); Carbon Dioxide 31 mmol/L (22-32); Chloride 106 mmol/L (98-107); Cholesterol 116 mg/dL (140-199); Creatinine Urine Random 105.6 mg/dL; Estimated Glomerular Filt Rate > 60.0 mL/min (>60); Globulin 2.8 g/dL (1.7-4.1); Glucose 88 mg/dL (80-110); HDL Cholesterol 30 mg/dL (40-60); HEMOLYSIS < 15 (0-50); LDL Cholesterol Calculated 65 mg/dL (<100); Potassium 3.9 mmol/L (3.4-5.1); Sodium 140 mmol/L (137-145); Total Protein 6.9 g/dL (6.3-8.2); Triglycerides 105 mg/dL (35-150)
[2021-09-28 09:29] LABS: Free T3, Triiodothyronine Free 3.09 pg/mL (2.77-5.27); Microalbumi Creatinin Ratio Ur 290.7 ug/mg CR (<30); Microalbumin Urine Random 30.7 mg/dL (0-1.6)
[2021-09-28 09:43] LABS: Thyroid Stimulating Hormone 2.19 uIU/mL (0.47-4.68)
[2021-09-28 13:35] LABS: Add Manual Diff / Slide Review NO; Basophils Absolute Auto 0 /uL (0-100); Basophils Percent Auto 0.6 % (0-2); Eosinophils Absolute Auto 200 /uL (0-450); Eosinophils Percent Auto 3.2 % (2-4); Hematocrit 41.9 % (41-53); Lymphocytes Absolute Auto 1900 /uL (1100-4500); Mean Corpuscular HGB Conc 33.4 % (30-36); Mean Corpuscular Hemoglobin 29.9 PG (26-34); Mean Corpuscular Volume 89.6 fL (80-100); Monocytes Absolute Auto 500 /uL (0-900); Monocytes Percent Auto 7.3 % (3-14); Neutrophils Absolute Auto 4000 /uL (1500-7000); Neutrophils Percent Auto 59.9 % (50-75); Platelet Count 170 X10^3/uL (150-400); Red Blood Cell Count 4.68 X10^6/uL (4.5-5.9); Red Cell Distribution Width 15.4 % (11.6-14.8); White Blood Cell Count 6.7 X10^3/uL (4.5-11.0)
[2021-09-28 17:21] LABS: Bilirubin Unconjugated 0.8 mg/dL (0.0-1.1)
== END ==
PROVIDERS: PCP Nurse Practitioner; Referring Provider Physician Assistant Medical; Visit Provider Physician Assistant Medical
DX: E11.8 Type 2 diabetes mellitus with unspecified complications (principal); R61 Generalized hyperhidrosis; B35.8 Other dermatophytoses; I10 Essential (primary) hypertension; Z79.4 Long term (current) use of insulin
CPT/HCPCS: 36415; 80053; 80061; 80076; 82043; 82570; 83036; 84439; 84443; 84481; 85025; 87040

== ENCOUNTER → 2021-10-25 07:40 | Outpatient (CLI) | payer MEDICARE, MEDICAID, SELFPAY | PROVIDERS: PCP Nurse Practitioner; Referring Provider Specialist; Visit Provider Specialist | DX: R61 Generalized hyperhidrosis (principal) | CPT/HCPCS: 36415; 87040 ==

== ENCOUNTER → 2021-11-05 08:16 | Outpatient (CLI) | payer MEDICARE, MEDICAID, SELFPAY ==
[2021-11-05 09:55] LABS: Alanine Aminotransferase 18 IU/L (<50); Albumin 4.1 g/dL (3.5-5.0); Albumin Globulin Ratio 1.5 (1.0-2.8); Alkaline Phosphatase 80 U/L (38-126); Aspartate Aminotransferase 22 IU/L (17-59); Bilirubin Total 0.8 mg/dL (0.2-1.3); Bilirubin Unconjugated 0.7 mg/dL (0.0-1.1); Globulin 2.7 g/dL (1.7-4.1); HEMOLYSIS < 15 (0-50); Total Protein 6.8 g/dL (6.3-8.2)
== END ==
PROVIDERS: PCP Nurse Practitioner; Referring Provider Physician Assistant Medical; Visit Provider Physician Assistant Medical
DX: B35.9 Dermatophytosis, unspecified (principal)
CPT/HCPCS: 36415; 80076

== ENCOUNTER → 2021-11-24 11:29 | Outpatient (CLI) | payer MEDICARE, MEDICAID, SELFPAY ==
[2021-11-24 12:58] LABS: Alanine Aminotransferase 16 IU/L (<50); Albumin 4.1 g/dL (3.5-5.0); Albumin Globulin Ratio 1.6 (1.0-2.8); Alkaline Phosphatase 83 U/L (38-126); Aspartate Aminotransferase 20 IU/L (17-59); BUN Creatinine Ratio 21.9 (6-22); Bilirubin Total 0.7 mg/dL (0.2-1.3); Blood Urea Nitrogen 16 mg/dL (9-20); Carbon Dioxide 31 mmol/L (22-32); Chloride 109 mmol/L (98-107); Cholesterol 125 mg/dL (140-199); Estimated Glomerular Filt Rate > 60 mL/min (>60); Globulin 2.6 g/dL (1.7-4.1); Glucose 91 mg/dL (80-110); HDL Cholesterol 38 mg/dL (40-60); HEMOLYSIS < 15 (0-50); LDL Cholesterol Calculated 67 mg/dL (<100); Magnesium 1.7 mg/dL (1.6-2.3); Potassium 4.3 mmol/L (3.4-5.1); Sodium 142 mmol/L (137-145); Total Protein 6.7 g/dL (6.3-8.2); Triglycerides 99 mg/dL (35-150)
== END ==
PROVIDERS: PCP Nurse Practitioner; Referring Provider Specialist; Visit Provider Specialist
DX: I10 Essential (primary) hypertension (principal); E78.5 Hyperlipidemia, unspecified
CPT/HCPCS: 36415; 80053; 80061; 83735

== ENCOUNTER → 2021-12-21 07:52 | Outpatient (CLI) | payer MEDICARE, MEDICAID, SELFPAY ==
[2021-12-21 09:28] LABS: Add Manual Diff / Slide Review NO; Basophils Absolute Auto 0 /uL (0-100); Basophils Percent Auto 0.7 % (0-2); Eosinophils Absolute Auto 300 /uL (0-450); Eosinophils Percent Auto 5.3 % (2-4); Hematocrit 41.2 % (41-53); Hemoglobin 13.7 g/dL (13.5-17.5); Lymphocytes Absolute Auto 1800 /uL (1100-4500); Lymphocytes Percent Auto 29.8 % (25-40); Mean Corpuscular HGB Conc 33.3 % (30-36); Mean Corpuscular Hemoglobin 29.8 PG (26-34); Mean Corpuscular Volume 89.7 fL (80-100); Monocytes Absolute Auto 500 /uL (0-900); Monocytes Percent Auto 7.8 % (3-14); Neutrophils Absolute Auto 3400 /uL (1500-7000); Neutrophils Percent Auto 56.4 % (50-75); Platelet Count 160 X10^3/uL (150-400); Red Blood Cell Count 4.59 X10^6/uL (4.5-5.9); Red Cell Distribution Width 15.2 % (11.6-14.8); White Blood Cell Count 5.9 X10^3/uL (4.5-11.0)
[2021-12-21 09:42] LABS: Alanine Aminotransferase 17 IU/L (<50); Albumin 3.9 g/dL (3.5-5.0); Albumin Globulin Ratio 1.5 (1.0-2.8); Alkaline Phosphatase 82 U/L (38-126); Aspartate Aminotransferase 20 IU/L (17-59); Bilirubin Total 0.5 mg/dL (0.2-1.3); Bilirubin Unconjugated 0.4 mg/dL (0.0-1.1); Globulin 2.6 g/dL (1.7-4.1); HEMOLYSIS < 15 (0-50); Total Protein 6.5 g/dL (6.3-8.2)
== END ==
PROVIDERS: PCP Nurse Practitioner; Referring Provider Physician Assistant Medical; Visit Provider Physician Assistant Medical
DX: Z79.899 Other long term (current) drug therapy (principal); B35.9 Dermatophytosis, unspecified
CPT/HCPCS: 36415; 80076; 85025

== ENCOUNTER → 2022-02-07 07:28 | Outpatient (CLI) | payer MEDICARE, MEDICAID, SELFPAY ==
[2022-02-07 08:13] LABS: Alanine Aminotransferase 22 IU/L (<50); Albumin 4.1 g/dL (3.5-5.0); Albumin Globulin Ratio 1.7 (1.0-2.8); Alkaline Phosphatase 93 U/L (38-126); Aspartate Aminotransferase 21 IU/L (17-59); Bilirubin Total 0.4 mg/dL (0.2-1.3); Bilirubin Unconjugated 0.4 mg/dL (0.0-1.1); Globulin 2.4 g/dL (1.7-4.1); HEMOLYSIS < 15 (0-50); Total Protein 6.5 g/dL (6.3-8.2)
== END ==
PROVIDERS: PCP Nurse Practitioner; Referring Provider Physician Assistant Medical; Visit Provider Physician Assistant Medical
DX: B35.1 Tinea unguium (principal)
CPT/HCPCS: 36415; 80076

== ENCOUNTER → 2022-02-21 08:51 | Outpatient (CLI) | payer MEDICARE, MEDICAID, SELFPAY ==
[2022-02-21 09:44] LABS: Creatinine Urine Random 76.4 mg/dL
[2022-02-21 09:48] LABS: Microalbumi Creatinin Ratio Ur 223.8 ug/mg CR (<30); Microalbumin Urine Random 17.1 mg/dL (0-1.6)
[2022-02-21 09:54] LABS: Hemoglobin A1C% w Est Avg Glu 6.5 % (4.0-6.0)
[2022-02-21 10:15] LABS: Alanine Aminotransferase 18 IU/L (<50); Albumin 4.2 g/dL (3.5-5.0); Albumin Globulin Ratio 1.4 (1.0-2.8); Alkaline Phosphatase 90 U/L (38-126); Aspartate Aminotransferase 19 IU/L (17-59); BUN Creatinine Ratio 16.3 (6-22); Bilirubin Total 0.6 mg/dL (0.2-1.3); Blood Urea Nitrogen 13 mg/dL (9-20); Carbon Dioxide 31 mmol/L (22-32); Chloride 109 mmol/L (98-107); Cholesterol 118 mg/dL (140-199); Estimated Glomerular Filt Rate > 60 mL/min (>60); Globulin 2.9 g/dL (1.7-4.1); Glucose 108 mg/dL (80-110); HDL Cholesterol 35 mg/dL (40-60); HEMOLYSIS < 15 (0-50); LDL Cholesterol Calculated 61 mg/dL (<100); Potassium 4.1 mmol/L (3.4-5.1); Sodium 140 mmol/L (137-145); Total Protein 7.1 g/dL (6.3-8.2); Triglycerides 112 mg/dL (35-150)
[2022-02-21 10:44] LABS: Free T3, Triiodothyronine Free 3.62 pg/mL (2.77-5.27); Free T4, Direct Thyroxine 1.06 ng/dL (0.78-2.19)
[2022-02-21 10:57] LABS: Thyroid Stimulating Hormone 1.45 uIU/mL (0.47-4.68)
== END ==
PROVIDERS: PCP Nurse Practitioner; Referring Provider Nurse Practitioner; Visit Provider Nurse Practitioner
DX: E11.42 Type 2 diabetes mellitus with diabetic polyneuropathy (principal); E78.2 Mixed hyperlipidemia; I10 Essential (primary) hypertension; Z79.4 Long term (current) use of insulin; Z79.899 Other long term (current) drug therapy; E11.8 Type 2 diabetes mellitus with unspecified complications
CPT/HCPCS: 36415; 80053; 80061; 82043; 82570; 83036; 84439; 84443; 84481

== ENCOUNTER → 2022-03-16 13:47 | Outpatient (CLI) | payer MEDICARE, MEDICAID, SELFPAY ==
--- NOTE | 2022-03-16 | DI.US.S_ITS ---
PROCEDURE: US RENAL COMPLETE INDICATIONS: Proteinuria, unspecified TECHNIQUE: Real-time scanning was performed of the kidneys and bladder, with image documentation. COMPARISON: None. FINDINGS: Kidneys: Kidneys are normal in size. Right kidney measures 15.0 cm long; left kidney measures 14.6 cm long. Right renal cortical thickness is 1.6 cm; left renal cortical thickness is 1.3 cm. Renal cortical echotexture is normal. No hydronephrosis or nephrolithiasis. No suspicious solid mass lesions. Bladder: Pre-void bladder volume is 194 mL. Post-void residual is empty. Miscellaneous: No free pelvic fluid. IMPRESSION: Normal bilateral renal ultrasound. Dictated by: Justin Prieto M.D. on 03/16/2022 at 17:37 Approved by: Justin Prieto M.D. on 03/16/2022 at 17:39
== END ==
PROVIDERS: PCP Nurse Practitioner; Referring Provider Internal Medicine Nephrology; Visit Provider Internal Medicine Nephrology
DX: R80.9 Proteinuria, unspecified (principal)
CPT/HCPCS: 76770

== ENCOUNTER → 2022-05-12 07:32 | Outpatient (CLI) | payer MEDICARE, MEDICAID, SELFPAY ==
[2022-05-12 09:38] LABS: Hemoglobin A1C% w Est Avg Glu 6.3 % (4.0-6.0)
[2022-05-12 10:43] LABS: Alanine Aminotransferase 19 IU/L (<50); Albumin 3.8 g/dL (3.5-5.0); Albumin Globulin Ratio 1.4 (1.0-2.8); Alkaline Phosphatase 84 U/L (38-126); Aspartate Aminotransferase 18 IU/L (17-59); BUN Creatinine Ratio 15.3 (6-22); Bilirubin Total 0.7 mg/dL (0.2-1.3); Blood Urea Nitrogen 11 mg/dL (9-20); Calcium 8.7 mg/dL (8.4-10.2); Carbon Dioxide 33 mmol/L (22-32); Chloride 107 mmol/L (98-107); Cholesterol 99 mg/dL (140-199); Estimated Glomerular Filt Rate > 60 mL/min (>60); Globulin 2.7 g/dL (1.7-4.1); Glucose 99 mg/dL (80-110); HDL Cholesterol 35 mg/dL (40-60); HEMOLYSIS < 15 (0-50); LDL Cholesterol Calculated 45 mg/dL (<100); Potassium 4.1 mmol/L (3.4-5.1); Sodium 142 mmol/L (137-145); Total Protein 6.5 g/dL (6.3-8.2); Triglycerides 96 mg/dL (35-150)
[2022-05-12 10:44] LABS: Magnesium 1.7 mg/dL (1.6-2.3)
[2022-05-12 10:47] LABS: Creatinine Urine Random 69.9 mg/dL
[2022-05-12 11:08] LABS: Microalbumi Creatinin Ratio Ur 333.3 ug/mg CR (<30); Microalbumin Urine Random 23.3 mg/dL (0-1.6)
[2022-05-12 16:35] LABS: Hep C Virus Ab w/Reflex Quant NEGATIVE s/c (NEGATIVE)
[2022-05-15 09:12] LABS: Cholesterol, Total 111 mg/dL (100-199); HDL-Cholesterol 43 mg/dL (>39); HDL-Particle (Total) 28.9 umol/L (>=30.5); LDL Particle 533 nmol/L (<1000); LDL Size 20.3 nm (>20.5); LDL-Cholsterol 50 mg/dL (0-99); LP-IR Score 59 (<=45); Small LDL- Particle 276 nmol/L (<=527); Triglycerides 96 mg/dL (0-149)
== END ==
PROVIDERS: PCP Nurse Practitioner; Referring Provider Specialist; Visit Provider Specialist
DX: E11.9 Type 2 diabetes mellitus without complications (principal); E78.5 Hyperlipidemia, unspecified; Z12.5 Encounter for screening for malignant neoplasm of prostate; I10 Essential (primary) hypertension; E78.2 Mixed hyperlipidemia; Z11.59 Encounter for screening for other viral diseases
CPT/HCPCS: 36415; 80053; 80061; 82043; 82570; 83036; 83704; 83735; 86803; G0103

== ENCOUNTER → 2022-09-01 07:27 | Outpatient (CLI) | payer MEDICARE, MEDICAID, SELFPAY ==
[2022-09-01 08:01] LABS: Alanine Aminotransferase 28 IU/L (<50); Albumin 4.1 g/dL (3.5-5.0); Albumin Globulin Ratio 1.3 (1.0-2.8); Alkaline Phosphatase 95 U/L (38-126); Aspartate Aminotransferase 23 IU/L (17-59); BUN Creatinine Ratio 17.6 (6-22); Bilirubin Total 0.7 mg/dL (0.2-1.3); Blood Urea Nitrogen 13 mg/dL (9-20); Calcium 9.1 mg/dL (8.4-10.2); Carbon Dioxide 32 mmol/L (22-32); Chloride 110 mmol/L (98-107); Cholesterol 123 mg/dL (140-199); Estimated Glomerular Filt Rate > 60 mL/min (>60); Globulin 3.1 g/dL (1.7-4.1); Glucose 104 mg/dL (80-110); HDL Cholesterol 35 mg/dL (40-60); HEMOLYSIS < 15 (0-50); LDL Cholesterol Calculated 61 mg/dL (<100); Sodium 143 mmol/L (137-145); Total Protein 7.2 g/dL (6.3-8.2); Triglycerides 137 mg/dL (35-150)
[2022-09-01 08:21] LABS: Hemoglobin A1C% w Est Avg Glu 6.1 % (4.0-6.0)
[2022-09-01 08:48] LABS: Creatinine Urine Random 140.8 mg/dL
[2022-09-01 09:05] LABS: Free T3, Triiodothyronine Free 3.69 pg/mL (2.77-5.27); Free T4, Direct Thyroxine 0.88 ng/dL (0.78-2.19)
[2022-09-01 09:13] LABS: Microalbumi Creatinin Ratio Ur 290.4 ug/mg CR (<30); Microalbumin Urine Random 40.9 mg/dL (0-1.6)
== END ==
PROVIDERS: PCP Nurse Practitioner; Referring Provider Nurse Practitioner; Visit Provider Nurse Practitioner
DX: E11.29 Type 2 diabetes mellitus with other diabetic kidney complication (principal); E11.8 Type 2 diabetes mellitus with unspecified complications; E78.2 Mixed hyperlipidemia; I10 Essential (primary) hypertension; R80.9 Proteinuria, unspecified; Z79.4 Long term (current) use of insulin; Z79.899 Other long term (current) drug therapy
CPT/HCPCS: 36415; 80053; 80061; 82043; 82570; 83036; 84439; 84443; 84481

== ENCOUNTER 2022-10-12 10:07 | Day surgery (SDC) | payer MEDICARE, MEDICAID, SELFPAY ==
--- NOTE | 2022-10-12 | PATH_ITS ---
[facility] Accession Number: [id number] No. of containers..02 Tissue . 01 Material submitted: . PART A: colon - RIGHT COLON POLYP PART B: colon - COLON POLYP @ 70CM . 01 Diagnosis: A. Right Colon, Polyp, Biopsy: Tubular adenoma. . B. Colon, Polyp at 70 cm, Biopsy: Tubular adenoma. MRV 10/14/2022 1349 Local . 01 Electronically signed: . Kusum Patel MD, Pathologist NPI- [id number] . 01 Gross description: . Part A: RIGHT COLON POLYP: Received in formalin are 3 fragment(s) of koehler, soft tissue measuring 0.5 x 0.4 x 0.3 cm to 0.2 x 0.1 x 0.1 cm submitted entirely in 1 cassette(s) Part B: COLON POLYP @ 70CM: Received in formalin are 2 fragment(s) of koehler, soft tissue measuring 0.3 x 0.3 x 0.2 cm to 0.3 x 0.1 x 0.1 cm submitted entirely in 1 cassette(s) /CPE 10/13/2022 0845 Local . 01 Pathologist provided ICD-10: D12.6 . 01 CPT . 850561, [id number] Specimen Comment: A courtesy copy of this report has been sent to [phone] Performed at: 01 [facility] [address] [place] [address] [address], [place], [place] [id number] MD Peter Corrales MD Phone: [phone]
[2022-10-12 11:03] VITALS: BMI 43.8
[2022-10-12 11:11] VITALS: BP 161/87; PULSE 62; RESP 22; TEMP 36.8; O2SAT 96
--- NOTE | 2022-10-12 11:55 | PM.HP.1 ---
History of Present Illness History of Present Illness Chief complaint: Colonoscopy Narrative: Family history of colon cancer in an elder brother diagnosed 7 years ago. Patient's last colonoscopy over 10 years ago. Asymptomatic. 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) GERD (gastroesophageal reflux disease) Housing structurally unsound Hyperlipemia Hypertension Incisional hernia (2010) Measles Microalbuminuria due to type 2 diabetes mellitus Morbid obesity with body mass index (BMI) of 40.0 to 49.9 [place] Nocturnal hypoxemia Obstructive sleep apnea syndrome (11/24/10) Peripheral neuropathy Restless leg syndrome Sleep apnea Testicular pain, unspecified Surgical History History of carpal tunnel release History of cholecystectomy (07/02/09) History of colonoscopy (04/23/04) History of ERCP (07/2009) History of incisional hernia repair (07/27/10) History of left cataract surgery (02/14/17) History of orthopedic surgery (1999) History of orthopedic surgery (2000) History of right cataract surgery (01/31/17) History of surgery of liver (06/23/11) Family History Daughter No problems noted. Father Emphysema of lung Mother Lung cancer Obesity Brother No problems noted. Brother No problems noted. Sister No problems noted. Sister No problems noted. Son No problems noted. Social History household members: spouse Smoking Status: Former smoker Tobacco: How many years used: 25 second hand exposure: Yes (sometimes) alcohol intake: former substance use type: does not use Meds Home Medications and Allergies Home Medications Medication Instructions Recorded Confirmed Type ASPIRIN (Aspirin) 81 mg PO Q DAY ##0 03/24/12 09/05/22 History ASCORBIC ACID (Vitamin C With Rashida 500 mg PO BID ##0 01/02/13 09/05/22 History Hips) CHOLECALCIFEROL (D-3) 1,000 iu PO Q DAY ##0 01/02/13 09/05/22 History Calcium Carbonate/Vitamin D 1 tab PO BID ##0 01/02/13 09/05/22 History (#CALCIUM W/VITAMIN D 600 MG-125 IU) [OXYGEN CONCENTRATOR] ##1 11/15/16 09/05/22 Rx rosuvastatin 20 mg tablet (Crestor) 20 mg PO QDAY ##0 03/29/17 09/05/22 History Lancets 0 dev QID ##120 04/19/17 09/05/22 Rx Disabled Parking Placard #1 ea 07/24/18 09/05/22 Rx Resmed Aircurve 10 BIPAP #1 ea 11/08/18 09/05/22 History olopatadine 0.1 % eye drops 1 drop ophthalmic (eye) BID 04/05/19 09/05/22 History acetaminophen 500 mg capsule 1,000 mg PO TID PRN as needed for 06/24/20 09/05/22 History pain L.acidoph, paracasei,B. lactis 10 See Rx Instructions PO BID #1 cap 09/22/20 09/05/22 Rx billion cell capsule (Digestive Advantage Advanced Probiotic) L.acidoph, paracasei,B. lactis 10 10,000,000 cell PO BID #1 cap 04/13/21 09/05/22 Rx billion cell capsule (Digestive Advantage Advanced Probiotic) sildenafil (pulm.hypertension) 20 20 mg PO ONCE #30 tabs 11/08/21 09/05/22 Rx mg tablet insulin aspart U-100 100 unit/mL 2 unit (0.02 mL) SUBCUT DAILY PRN 02/21/22 09/05/22 Rx (3 mL) subcutaneous pen (Novolog Diabetes #15 mL FlexPen U-100 Insulin aspart) lidocaine-prilocaine 2.5 %-2.5 % 1 g topical TID 02/21/22 09/05/22 History topical cream metoprolol tartrate 25 mg tablet 12.5 mg PO BID 02/21/22 09/05/22 History pyridostigmine bromide 60 mg tablet 180 mg PO TID 02/21/22 09/05/22 History Glucose: Home Monitoring Kit #1 ea 05/23/22 09/05/22 Rx Left hand brace #1 ea 05/23/22 09/05/22 Rx blood sugar diagnostic (True See Rx Instructions .Route 05/23/22 09/05/22 Rx Metrix Glucose Test Strip) .COMPLEX #300 ea fluticasone propionate 250 2 inh inhalation Q12H #360 ea 05/23/22 09/05/22 Rx mcg/actuation blister powder for inhalation gabapentin 600 mg tablet 600 mg PO TID #270 tabs 05/23/22 09/05/22 Rx insulin degludec 100 unit/mL (3 26 unit (0.26 mL) SUBCUT QDAY #15 05/23/22 09/05/22 Rx mL) subcutaneous pen (Tresiba mL FlexTouch U-100 insulin) irbesartan 150 mg tablet 150 mg PO QDAY #90 tabs 05/23/22 09/05/22 Rx pen needle, diabetic 31 gauge x See Rx Instructions .Route 05/23/22 09/05/22 Rx 5/16 (Unifine Pentips) .COMPLEX #300 ea tamsulosin 0.4 mg capsule 0.4 mg PO DAILY #90 caps 05/23/22 09/05/22 Rx albuterol sulfate 90 mcg/actuation 2 puff inhalation Q4-6H PRN 07/08/22 09/05/22 Rx aerosol inhaler shortness of breath or wheezing, cough #8.5 grams omeprazole 20 mg capsule,delayed 20 mg PO QDAY #90 caps 08/17/22 09/05/22 Rx release Thumb/wrist splint left ##1 09/05/22 09/05/22 Rx terbinafine HCl 250 mg tablet 250 mg PO DAILY 10/12/22 10/12/22 History Allergies Allergy/AdvReac Type Severity Reaction Status Date / Time hydromorphone [HYDROMORPHONE] Allergy Severe (DILAUDID) Verified 05/23/22 08:56 Got red, had a chicken pox type rash, dizzy shellfish derived Allergy Severe Problems Verified 05/23/22 08:56 [SHELLFISH DERIVED] breathing, vomiting, RASH atorvastatin [ATORVASTATIN] AdvReac Severe (LIPITOR) Verified 05/23/22 08:56 neck and face swelled myalgias insulin detemir AdvReac Severe Diarrhea, Verified 05/23/22 08:56 [From LEVEMIR] sores on skin, bruising nifedipine [NIFEDIPINE] AdvReac Severe EDEMA Verified 05/23/22 08:56 Thiazides [THIAZIDES] AdvReac Severe PANCREATITI Verified 05/23/22 08:56 S insulin glargine AdvReac Intermediate Sweating, Verified 05/23/22 08:56 [From INGRIS AGUILERA] nausea (same as Levemir) Exam Vital Signs (past 8 hours): - 10/12/22 11:11 Temperature 98.2 F Pulse Rate 62 Respiratory Rate 22 Blood Pressure 161/87 H Pulse Oximetry 96 Oxygen Delivery Method Room Air Oxygen Delivery Method Room Air Narrative Exam Narrative: Oropharynx free of lesions Chest clear to auscultation percussion Cardiac exam reveals no S3 or murmur Assessment & Plan Assessment & Plan narrative: Family history of colon cancer need for screening colonoscopy. Risks, benefits, alternatives have been explained.
--- NOTE | 2022-10-12 11:57 | PM.OP.COLON ---
Operative Date/Time/Diagnoses Date of procedure: 10/12/22 Pre-op diagnosis: See indication and findings Procedure & Clinicians Study performed: Colonoscopy Indications: Family history of colon cancer Surgeon: Gumaro Francois Procedure Notes Procedure in detail: After informed consent was obtained the patient was placed in left lateral decubitus position. The video colonoscope was introduced the rectum slowly advanced cecum. Slow withdrawal mucosa was carefully examined. Scope was removed. Patient tolerated procedure well. Blood loss none Complications none Sedation mac Findings 1. In the right colon was a 8 mm sessile colon polyp which was snared and removed completely. The base had some focal continued oozing which was touched up with the tip of the snare. No bleeding was noted at the end of the procedure 2. A 12 mm polyp was found at 70 cm. This was hot snared and removed completely 3. Few scattered diverticula in the left colon 4. Otherwise negative colonoscopy to cecum I would suggest that Mr. Saxena have follow-up colonoscopy in 3 years but we will wait based on results of his polyps
[2022-10-12 12:27] VITALS: BP 110/67; PULSE 92; RESP 14; TEMP 36.2; O2SAT 94
[2022-10-12 12:32] VITALS: BP 128/78; PULSE 60; RESP 16; O2SAT 94
[2022-10-12 12:38] VITALS: BP 138/84; PULSE 56; RESP 18; O2SAT 94
[2022-10-12 13:00] VITALS: BP 148/84; PULSE 58; RESP 18; O2SAT 94
[2022-10-12 13:20] VITALS: BP 144/82; PULSE 58; RESP 20; O2SAT 94
--- NOTE | 2022-10-12 14:02 | SUR.PHASEII ---
total IVS 500ml LR
== END 2022-10-12 13:20 | disposition home or self-care (01) ==
PROVIDERS: PCP Nurse Practitioner; Referring Provider Internal Medicine Gastroenterology; Visit Provider Internal Medicine Gastroenterology
PROC: 0DJD8ZZ Inspection of Lower Intestinal Tract, Via Natural or Artificial Opening Endoscopic (ICD-10-PCS; CPT 45378; principal; 2022-10-12 11:30)
DX: Z12.11 Encounter for screening for malignant neoplasm of colon (principal); Z80.0 Family history of malignant neoplasm of digestive organs; K57.30 Diverticulosis of large intestine without perforation or abscess without bleeding; D12.6 Benign neoplasm of colon, unspecified
CPT/HCPCS: 45385; J2704

== ENCOUNTER 2022-10-13 07:41 | Inpatient (IN) | payer MEDICARE, MEDICAID, SELFPAY ==
[2022-10-13] VITALS (16 sets, daily range): BP systolic 91–180; BP diastolic 35–106; PULSE 55–69; RESP 15–25; TEMP 36–36.9; O2SAT 93–96; BMI 44.3; BMI 42.0
--- NOTE | 2022-10-13 07:47 | ED_ITS ---
HPI - GI Bleed General Chief complaint: GI Bleed Stated complaint: GI Bleed Time Seen by Provider: 10/13/22 07:47 History of Present Illness HPI Narrative: The patient is a 67-year-old, history of insulin-dependent diabetes, hypertension, hyperlipidemia, presenting today with maroon like stool. He reports that he had colonoscopy yesterday with Dr. Francois. 2 polyps were found 1 in the right colon 8 mm and the other 12 mm polyp found at 70 m both were completely removed and hot snared. Patient reports that he had 2 last night and 3 episodes this morning. Sounds is it has been quite a bit of blood dripping down his leg all over the bathroom soiling depends in the bed. EMS arrived and he was extremely diaphoretic sure is wet dizzy lightheaded he did not pass out. He is overall feeling better. Vitals have been normal for EMS and remained normal here. He is not tachycardic or hypotensive. He is not on anticoagulation but does take aspirin. He denies any abdominal pain. Related Data Home Medications Medication Instructions Recorded Confirmed ASPIRIN (Aspirin) 81 mg PO Q DAY ##0 03/24/12 10/13/22 ASCORBIC ACID (Vitamin C With Rashida 500 mg PO BID ##0 01/02/13 10/13/22 Hips) CHOLECALCIFEROL (D-3) 1,000 iu PO Q DAY ##0 01/02/13 10/13/22 Calcium Carbonate/Vitamin D 1 tab PO BID ##0 01/02/13 10/13/22 (#CALCIUM W/VITAMIN D 600 MG-125 IU) rosuvastatin 20 mg tablet (Crestor) 20 mg PO QDAY ##0 03/29/17 10/13/22 Resmed Aircurve 10 BIPAP #1 ea 11/08/18 09/05/22 olopatadine 0.1 % eye drops 1 drop ophthalmic (eye) BID 04/05/19 10/13/22 acetaminophen 500 mg capsule 1,000 mg PO TID PRN as needed for 06/24/20 10/13/22 pain lidocaine-prilocaine 2.5 %-2.5 % 1 g topical TID 02/21/22 10/13/22 topical cream metoprolol tartrate 25 mg tablet 12.5 mg PO 08/08/22 02/20/23 pyridostigmine bromide 60 mg tablet 180 mg PO TID 02/21/22 10/13/22 sildenafil (pulm.hypertension) 20 20 mg PO PRN PRN Erectile 10/13/22 10/13/22 mg tablet Dysfunction Previous Rx's Medication Instructions Recorded [OXYGEN CONCENTRATOR] ##1 11/15/16 Lancets 0 dev QID ##120 04/19/17 Disabled Parking Placard #1 ea 07/24/18 insulin aspart U-100 100 unit/mL 2 unit (0.02 mL) SUBCUT DAILY PRN 02/21/22 (3 mL) subcutaneous pen (Novolog Diabetes #15 mL FlexPen U-100 Insulin aspart) Glucose: Home Monitoring Kit #1 ea 05/23/22 Left hand brace #1 ea 05/23/22 blood sugar diagnostic (True See Rx Instructions .Route 05/23/22 Metrix Glucose Test Strip) .COMPLEX #300 ea fluticasone propionate 250 2 inh inhalation Q12H #360 ea 05/23/22 mcg/actuation blister powder for inhalation gabapentin 600 mg tablet 600 mg PO TID #270 tabs 05/23/22 insulin degludec 100 unit/mL (3 26 unit (0.26 mL) SUBCUT QDAY #15 05/23/22 mL) subcutaneous pen (Tresiba mL FlexTouch U-100 insulin) irbesartan 150 mg tablet 150 mg PO QDAY #90 tabs 05/23/22 pen needle, diabetic 31 gauge x See Rx Instructions .Route 05/23/22 5/16 (Unifine Pentips) .COMPLEX #300 ea tamsulosin 0.4 mg capsule 0.4 mg PO DAILY #90 caps 05/23/22 albuterol sulfate 90 mcg/actuation 2 puff inhalation Q4-6H PRN 07/08/22 aerosol inhaler shortness of breath or wheezing, cough #8.5 grams omeprazole 20 mg capsule,delayed 20 mg PO QDAY #90 caps 08/17/22 release Thumb/wrist splint left ##1 09/05/22 Allergies Allergy/AdvReac Type Severity Reaction Status Date / Time hydromorphone [HYDROMORPHONE] Allergy Severe (DILAUDID) Verified 10/13/22 07:58 Got red, had a chicken pox type rash, dizzy shellfish derived Allergy Severe Problems Verified 10/13/22 07:58 [SHELLFISH DERIVED] breathing, vomiting, RASH atorvastatin [ATORVASTATIN] AdvReac Severe (LIPITOR) Verified 10/13/22 07:58 neck and face swelled myalgias insulin detemir AdvReac Severe Diarrhea, Verified 10/13/22 07:58 [From LEVEMIR] sores on skin, bruising nifedipine [NIFEDIPINE] AdvReac Severe EDEMA Verified 10/13/22 07:58 Thiazides [THIAZIDES] AdvReac Severe PANCREATITI Verified 10/13/22 07:58 S insulin glargine AdvReac Intermediate Sweating, Verified 10/13/22 07:58 [From BASAGLAR KWIKPEN] nausea (same as Levemir) Review of Systems Review of Systems ROS Unobtainable: All systems reviewed & are unremarkable except as noted in HPI and below Patient History Medical History Abscess of liver (2010) Angina pectoris (2014) Arthritis of first metatarsophalangeal (MTP) joint of left foot (09/2017) Arthritis of left ankle (09/2017) Bone spur of left foot (09/2017) CAD (coronary artery disease) (04/2016) Chickenpox Chronic low back pain Chronic pain COPD (chronic obstructive pulmonary disease) Coronary artery disease CTS (carpal tunnel syndrome) Diabetes Diastasis recti (2010) Erectile dysfunction 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) GERD (gastroesophageal reflux disease) Housing structurally unsound Hyperlipemia Hypertension Incisional hernia (2010) Measles Microalbuminuria due to type 2 diabetes mellitus Morbid obesity with body mass index (BMI) of 40.0 to 49.9 [place] Nocturnal hypoxemia Obstructive sleep apnea syndrome (11/24/10) Peripheral neuropathy Restless leg syndrome Sleep apnea Testicular pain, unspecified Surgical History History of carpal tunnel release History of cholecystectomy (07/02/09) History of colonoscopy (04/23/04) History of ERCP (07/2009) History of incisional hernia repair (07/27/10) History of left cataract surgery (02/14/17) History of orthopedic surgery (1999) History of orthopedic surgery (2000) History of right cataract surgery (01/31/17) History of surgery of liver (06/23/11) Family History Daughter No problems noted. Father Emphysema of lung Mother Lung cancer Obesity Brother No problems noted. Brother No problems noted. Sister No problems noted. Sister No problems noted. Son No problems noted. Social History household members: spouse Smoking Status: Former smoker Tobacco: How many years used: 25 second hand exposure: Yes (sometimes) alcohol intake: former substance use type: does not use Smoking Status: Former smoker Exam Initial Vital Signs Initial Vital Signs: Vital Signs Pulse Rate 62 10/13/22 07:48 Respiratory Rate 21 10/13/22 07:48 Pulse Oximetry 95 10/13/22 07:48 GENERAL: Alert 67-year-old male clammy, slightly cool slightly pale HEENT: Head atraumatic,EOMI, pupils reactive, face symmetric, [moist] mucous membranes CARDIOVASCULAR: Regular rate and rhythm without murmurs, rubs or gallops. RESPIRATORY: Breath sounds equal bilaterally, no wheezes rales or rhonchi. ABDOMEN: Soft, nontender. Normoactive bowel sounds all 4 quadrants. No guarding or rebound. Vertical scar noted on abdomen [RECTAL:] EXTREMITIES: Normal range of motion, no clubbing or edema. Neurovascularly intact NEUROLOGICAL: Alert and oriented x4.Normal gait and speech. Health Education Specialist strength equal bilaterally SKIN: Warm, dry, no laceration, no petechiae, no rashes or lesions. Course Orders Ordered: ED Orders 10/13/22 07:48 EKG-12 Lead Stat 10/13/22 07:55 CBC Auto Diff [Complete Blood Count AUTO DIFF] Stat CMP [Comprehensive Metabolic Panel] Stat Lactate (Lactic Acid) Stat PT [Prothrombin Time INR] Stat PTT Partial Thromboplastin Tony Stat Troponin & CK Cardiac Panel Stat Type and Screen Stat 10/13/22 08:21 CT abdomen pelvis w con Stat 10/13/22 10:08 Hemoglobin and Hematocrit Stat 10/13/22 10:41 Consult to General Surgery Routine 10/13/22 16:00 Hemoglobin Urgent 10/14/22 05:00 BMP [Basic Metabolic Panel] DAILY CBC Auto Diff [Complete Blood Count AUTO DIFF] DAILY 10/15/22 05:00 BMP [Basic Metabolic Panel] DAILY CBC Auto Diff [Complete Blood Count AUTO DIFF] DAILY 10/16/22 05:00 BMP [Basic Metabolic Panel] DAILY CBC Auto Diff [Complete Blood Count AUTO DIFF] DAILY Acetaminophen (Acetaminophen 325 Mg Tablet) 650 mg PO Q6H PRN PRN Reason: Fever/Mild Pain (1-3) Dextrose (Dextrose 50 % In Water 25 Gm/50 Ml Syringe) 25 gm IV PRN PRN PRN Reason: Hypoglycemia Gabapentin (Gabapentin 600 Mg Tablet) 600 mg PO TID ROSI Sodium Chloride (Normal Saline 0.9%) 1,000 mls @ 100 mls/hr IV CONT ROSI Stop: 10/13/22 22:44 Insulin Human Regular (Insulin Regular 100 Unit/Ml 3 Ml Vial) 0 unit SUBCUT Q6H ROSI; Protocol Melatonin (Melatonin 3 Mg Tablet) 6 mg PO BEDTIME PRN PRN Reason: Insomnia Naloxone HCl (Naloxone 0.4 Mg/Ml Vial) 0.2 mg IV Q2MIN PRN PRN Reason: Opiate Reversal Nf - Rosuvastatin ( Crestor) 20 Mg Tablet 20 mg PO BEDTIME ROSI Ondansetron HCl (Ondansetron 4 Mg/2 Ml Inj) 4 mg IV Q6HR [facility] Pyridostigmine [place] (Pyridostigmine 60 Mg Tablet) 180 mg PO TID ROSI Tamsulosin HCl (Tamsulosin 0.4 Mg Capsule) 0.4 mg PO DAILY ROSI Discontinued Medications Ondansetron HCl (Ondansetron 4 Mg/2 Ml Inj) 4 mg IV NOW ONE Stop: 10/13/22 08:22 Last Admin: 10/13/22 08:32 Dose: 4 mg Documented By: NR Pantoprazole Sodium (Pantoprazole 40 Mg Vial) 40 mg IV NOW ONE Stop: 10/13/22 08:22 Last Admin: 10/13/22 08:32 Dose: 40 mg Documented By: NR Vital Signs Vital signs: Vital Signs - 8 hr 10/13/22 07:53 10/13/22 07:48 10/13/22 07:56 Temperature 98.2 F Pulse Rate 62 62 60 Respiratory Rate 18 21 25 H Blood Pressure 148/83 H Pulse Oximetry 94 95 93 Oxygen Delivery Method Room Air 10/13/22 07:56 10/13/22 08:00 10/13/22 08:00 Temperature Pulse Rate 59 L Respiratory Rate 19 Blood Pressure 117/74 135/69 Pulse Oximetry 93 Oxygen Delivery Method 03/30/23 08:15 10/13/22 08:15 10/13/22 08:30 Temperature Pulse Rate 58 L Respiratory Rate 20 Blood Pressure 141/73 H 148/70 H Pulse Oximetry 94 Oxygen Delivery Method 10/13/22 08:30 Temperature Pulse Rate 63 Respiratory Rate 21 Blood Pressure Pulse Oximetry 94 Oxygen Delivery Method MDM - GI Bleed Lab Data 10/13/22 10:08 10/13/22 07:55 Labs: Lab Results 10/13/22 10/13/22 10/13/22 Range/Units 07:55 07:55 07:55 WBC 7.5 (4.5-11.0) X10^3/uL RBC 4.46 L (4.5-5.9) X10^6/uL Hgb 13.2 L (13.5-17.5) g/dL Hct 39.0 L (41-53) % MCV 87.5 (80-100) fL MCH 29.7 (26-34) PG MCHC 33.9 (30-36) % RDW 15.7 H (11.6-14.8) % Plt Count 209 (150-400) X10^3/uL Neut % (Auto) 67.6 (50-75) % Lymph % (Auto) 20.9 L (25-40) % Wilson % (Auto) 7.5 (3-14) % Eos % (Auto) 3.0 (2-4) % Baso % (Auto) 1.0 (0-2) % Neut # (Auto) 5100 (9928-9352) /uL Lymph # (Auto) 1600 (4092-5902) /uL Wilson # (Auto) 600 (0-900) /uL Eos # (Auto) 200 (0-450) /uL Baso # (Auto) 100 (0-100) /uL PT 12.8 H (10.1-12.7) SECONDS INR 1.1 (0.9-1.3) APTT 33 (26-36) SECONDS Sodium 139 (137-145) mmol/L Potassium 4.0 (3.4-5.1) mmol/L Chloride 109 H (98-107) mmol/L Carbon Dioxide 30 (22-32) mmol/L BUN 19 (9-20) mg/dL Creatinine 0.71 (0.66-1.25) mg/dL Estimated GFR > 60 (>60) mL/min BUN/Creatinine Ratio 26.8 H (6-22) Glucose 150 H (80-110) mg/dL Lactate (0.7-2.1) mmol/L Calcium 8.6 (8.4-10.2) mg/dL Total Bilirubin 0.2 (0.2-1.3) mg/dL AST 27 (17-59) IU/L ALT 27 (<50) IU/L Alkaline Phosphatase 106 (38-126) U/L Total Creatine Kinase 276 H (55-170) U/L CK-MB (CK-2) 1.13 (<2.37) ng/mL CK-MB (CK-2) Rel Index 0.4 L (1.5-5.0) % Troponin I < 0.012 (0.01-0.034) ng/mL Total Protein 6.6 (6.3-8.2) g/dL Albumin 3.6 (3.5-5.0) g/dL Globulin 3.0 (1.7-4.1) g/dL Albumin/Globulin Ratio 1.2 (1.0-2.8) Blood Type Antibody Screen 10/13/22 10/13/22 10/13/22 Range/Units 07:55 07:55 10:08 WBC (4.5-11.0) X10^3/uL RBC (4.5-5.9) X10^6/uL Hgb 12.8 L (13.5-17.5) g/dL Hct 37.9 L (41-53) % MCV (80-100) fL MCH (26-34) PG MCHC (30-36) % RDW (11.6-14.8) % Plt Count (150-400) X10^3/uL Neut % (Auto) (50-75) % Lymph % (Auto) (25-40) % Wilson % (Auto) (3-14) % Eos % (Auto) (2-4) % Baso % (Auto) (0-2) % Neut # (Auto) (9983-4596) /uL Lymph # (Auto) (2137-9828) /uL Wilson # (Auto) (0-900) /uL Eos # (Auto) (0-450) /uL Baso # (Auto) (0-100) /uL PT (10.1-12.7) SECONDS INR (0.9-1.3) APTT (26-36) SECONDS Sodium (137-145) mmol/L Potassium (3.4-5.1) mmol/L Chloride (98-107) mmol/L Carbon Dioxide (22-32) mmol/L BUN (9-20) mg/dL Creatinine (0.66-1.25) mg/dL Estimated GFR (>60) mL/min BUN/Creatinine Ratio (6-22) Glucose (80-110) mg/dL Lactate 0.9 (0.7-2.1) mmol/L Calcium (8.4-10.2) mg/dL Total Bilirubin (0.2-1.3) mg/dL AST (17-59) IU/L ALT (<50) IU/L Alkaline Phosphatase (38-126) U/L Total Creatine Kinase (55-170) U/L CK-MB (CK-2) (<2.37) ng/mL CK-MB (CK-2) Rel Index (1.5-5.0) % Troponin I (0.01-0.034) ng/mL Total Protein (6.3-8.2) g/dL Albumin (3.5-5.0) g/dL Globulin (1.7-4.1) g/dL Albumin/Globulin Ratio (1.0-2.8) Blood Type O Positive Antibody Screen Negative Point of Care Testing Glucose POC [address] scan - abdomen/pelvis: Radiologist's Impression: PROCEDURE:? CT ABDOMEN PELVIS W CON ? INDICATIONS:? post colonoscopy, gastrointestinal bleed ? TECHNIQUE:? After the administration of IV contrast, axial sections were acquired from the lung bases to the pubic symphysis.? Coronal and sagittal reformats were performed.? For radiation dose reduction, the following was used:? automated exposure control, adjustment of mA and/or kV according to patient size. ? COMPARISON:? [facility], CT, CT CHEST WO CON, 05/11/2020, 7:01.? [facility], CT, CT CHEST WO CON, 07/08/2019, 8:10.? [facility], CT, ABDOMEN/PELVIS WITH CONTRAST, 04/06/2012, 17:22. ? FINDINGS:? Image quality:? Excellent.? ? Lung bases:? No pleural effusion.? Right middle lobe pulmonary nodule measuring 0.5 cm.? Right lung base pulmonary nodule measuring 0.4 cm.? Left lung base pulmonary nodule measuring 0.8 cm.? These nodules are unchanged.? ? Heart:? No significant findings. ? ? ABDOMEN: Liver:? A few hypodense foci in the liver.? These cannot be confirmed on the remote CT from 2011. Gallbladder:? Absent. Biliary ducts:? Pneumobilia is present, similar.? CBD is not dilated. Pancreas:? Unremarkable.? ? Spleen:? Unremarkable.? ? Adrenal Glands:? Unremarkable.? ? Kidneys and Ureters:? No hydronephrosis. ? Stomach and Bowel:? Stomach is not significantly distended.? No small bowel obstruction.? Questionable increased density in the ascending colon, ().? A few colonic diverticuli.? Normal appendix. Peritoneum:? No abnormal intraperitoneal fluid.? No free air.? ? Ventral Wall: ? No hernia.? Ventral abdominal wall mesh.? Abdominal Nodes:? No retroperitoneal or mesenteric adenopathy by size criteria.? Vessels:? Aorta and inferior vena cava are normal in size.? ? PELVIS: Pelvic Organs:? Unremarkable.? ? Bladder:? Unremarkable.? ? Pelvic Nodes: No enlarged lymph nodes.? Miscellaneous: No inguinal hernias are seen. ? ? ? Bones:? Bilateral intramedullary femoral rods.? No suspicious lesion.? Bridging vertebral body osteophytes. ? ? IMPRESSION:? 1. Questionable increased density in the ascending colon which could represent scant hemorrhage in the proper clinical setting. Tagged red blood cell nuclear medicine exam may be helpful for further evaluation. ? 2. No pneumoperitoneum.? No free fluid.? ? 3. A few hypodense foci in the liver which are not well characterized on this exam.? These could represent cysts or hemangiomas.? Neoplasm cannot be excluded.? If clinically indicated liver MRI could be performed for definitive characterization. ? Comment: Findings were discussed with Radha Brunson at time of dictation. ? Dictated by: Blair Rodriguez M.D. on 10/13/2022 at 9:31 ? ? Approved by: Blair Rodriguez M.D. on 10/13/2022 at 9:52 ? ECG Data Interpretation: Sinus rhythm rate 68 TN interval 158 QRS 132 QTC [address] changes right bundle-branch block no ischemia MDM Narrative Medical decision making narrative: Patient 67-year-old male history of insulin-dependent diabetes, hypertension hyperlipidemia presenting today rectal bleeding after colonoscopy. 2 polyps were removed. It as though he actually has had quite a bit of blood. He was diaphoretic and dizzy but vitals have been stable. Hemoglobin 13.9 hematocrit 39.0 repeat shows 12.8/37.9 no electrolyte abnormalities or SARAH lactate is 0.9. CT does show possible active bleeding in the right colon where he had a polyp removed. Patient remained hemodynamically stable, no recurrent bleeding in the emergency department. He is given 1 dose Protonix in the ED. 10:00 Dr. Winters surgery on-call updated on patient's symptoms test results recommends that patient be admitted to the hospital and monitored. Patient did have 1 further episode of rectal bleeding in the ED. Dr. Rain updated patient's symptoms test results and accepts patient. Discharge Plan Departure Patient Disposition: Admitted as Observation Clinical Impression: Acute GI bleeding Admit Date/Time: 10/13/22 10:42 Admit Provider: Fede Rain
[2022-10-13 08:02] LABS: Add Manual Diff / Slide Review NO; Basophils Absolute Auto 100 /uL (0-100); Eosinophils Absolute Auto 200 /uL (0-450); Hemoglobin 13.2 g/dL (13.5-17.5); Lymphocytes Absolute Auto 1600 /uL (1100-4500); Lymphocytes Percent Auto 20.9 % (25-40); Mean Corpuscular HGB Conc 33.9 % (30-36); Mean Corpuscular Hemoglobin 29.7 PG (26-34); Mean Corpuscular Volume 87.5 fL (80-100); Monocytes Absolute Auto 600 /uL (0-900); Monocytes Percent Auto 7.5 % (3-14); Neutrophils Absolute Auto 5100 /uL (1500-7000); Neutrophils Percent Auto 67.6 % (50-75); Platelet Count 209 X10^3/uL (150-400); Red Blood Cell Count 4.46 X10^6/uL (4.5-5.9); Red Cell Distribution Width 15.7 % (11.6-14.8); White Blood Cell Count 7.5 X10^3/uL (4.5-11.0)
[2022-10-13 08:08] LABS: INR 1.1 (0.9-1.3); Prothrombin Time 12.8 SECONDS (10.1-12.7)
[2022-10-13 08:10] LABS: PTT Partial Thromboplastin Tim 33 SECONDS (26-36)
[2022-10-13 08:13] LABS: Alanine Aminotransferase 27 IU/L (<50); Albumin 3.6 g/dL (3.5-5.0); Albumin Globulin Ratio 1.2 (1.0-2.8); Alkaline Phosphatase 106 U/L (38-126); Aspartate Aminotransferase 27 IU/L (17-59); BUN Creatinine Ratio 26.8 (6-22); Bilirubin Total 0.2 mg/dL (0.2-1.3); Blood Urea Nitrogen 19 mg/dL (9-20); Calcium 8.6 mg/dL (8.4-10.2); Carbon Dioxide 30 mmol/L (22-32); Chloride 109 mmol/L (98-107); Creatine Kinase 276 U/L (55-170); Estimated Glomerular Filt Rate > 60 mL/min (>60); Glucose 150 mg/dL (80-110); HEMOLYSIS < 15 (0-50); Sodium 139 mmol/L (137-145); Total Protein 6.6 g/dL (6.3-8.2)
[2022-10-13 08:14] LABS: Lactate (Lactic Acid) 0.9 mmol/L (0.7-2.1)
--- NOTE | 2022-10-13 08:21 | DI.CT.S_ITS ---
PROCEDURE: CT ABDOMEN PELVIS W CON INDICATIONS: post colonoscopy, gastrointestinal bleed TECHNIQUE: After the administration of IV contrast, axial sections were acquired from the lung bases to the pubic symphysis. Coronal and sagittal reformats were performed. For radiation dose reduction, the following was used: automated exposure control, adjustment of mA and/or kV according to patient size. COMPARISON: [facility], CT, CT CHEST WO CON, 05/11/2020, 7:01. [facility], CT, CT CHEST WO CON, 07/08/2019, 8:10. [facility], CT, ABDOMEN/PELVIS WITH CONTRAST, 04/06/2012, 17:22. FINDINGS: Image quality: Excellent. Lung bases: No pleural effusion. Right middle lobe pulmonary nodule measuring 0.5 cm. Right lung base pulmonary nodule measuring 0.4 cm. Left lung base pulmonary nodule measuring 0.8 cm. These nodules are unchanged. Heart: No significant findings. ABDOMEN: Liver: A few hypodense foci in the liver. These cannot be confirmed on the remote CT from 2011. Gallbladder: Absent. Biliary ducts: Pneumobilia is present, similar. CBD is not dilated. Pancreas: Unremarkable. Spleen: Unremarkable. Adrenal Glands: Unremarkable. Kidneys and Ureters: No hydronephrosis. Stomach and Bowel: Stomach is not significantly distended. No small bowel obstruction. Questionable increased density in the ascending colon, (2/57). A few colonic diverticuli. Normal appendix. Peritoneum: No abnormal intraperitoneal fluid. No free air. Ventral Wall: No hernia. Ventral abdominal wall mesh. Abdominal Nodes: No retroperitoneal or mesenteric adenopathy by size criteria. Vessels: Aorta and inferior vena cava are normal in size. PELVIS: Pelvic Organs: Unremarkable. Bladder: Unremarkable. Pelvic Nodes: No enlarged lymph nodes. Miscellaneous: No inguinal hernias are seen. Bones: Bilateral intramedullary femoral rods. No suspicious lesion. Bridging vertebral body osteophytes. IMPRESSION: 1. Questionable increased density in the ascending colon which could represent scant hemorrhage in the proper clinical setting. Tagged red blood cell nuclear medicine exam may be helpful for further evaluation. 2. No pneumoperitoneum. No free fluid. 3. A few hypodense foci in the liver which are not well characterized on this exam. These could represent cysts or hemangiomas. Neoplasm cannot be excluded. If clinically indicated liver MRI could be performed for definitive characterization. Comment: Findings were discussed with Radha Brunson at time of dictation. Dictated by: Blair Rodriguez M.D. on 10/13/2022 at 9:31 Approved by: Blair Rodriguez M.D. on 10/13/2022 at 9:52
[2022-10-13 08:25] LABS: Troponin I < 0.012 ng/mL (0.01-0.034)
[2022-10-13 08:29] LABS: CKMB % Relative Index 0.4 % (1.5-5.0); Creatine Kinase MB 1.13 ng/mL (<2.37)
[2022-10-13] MEDS: ONDANSETRON 4 MG/2 ML INJ IV ×2 (08:32→12:25)
[2022-10-13] MEDS: PANTOPRAZOLE 40 MG VIAL IV (08:32)
[2022-10-13 10:15] LABS: Hematocrit 37.9 % (41-53); Hemoglobin 12.8 g/dL (13.5-17.5)
--- NOTE | 2022-10-13 10:51 | PM.HP.1 ---
History of Present Illness History of Present Illness Date Patient Seen: 10/13/22 Time Patient Seen: 12:14 Chief complaint: GI Bleed Narrative: Magdi Saxena is a 67yo M with PMH of DM2, CAD, HTN, HLD, EDIN, GERD, morbid obesity and RLS who presents 1 day after colonoscopy which removed 2 polyps now with rectal bleeding. Patient went home following the procedure yesterday and then later that night he developed maroon-colored stools. He then had 3 more overnight and this morning with dark blood that filled the toilet bowl. He felt dizzy and very sweaty but did not pass out. Mild nausea and lower abd pain. He has not taken his home aspirin since 3 days before the colonoscopy. He denies CP, SOB, headache or dizziness. In the ED patient's Hgb went from 13.2 to 12.[address] abd showed likely small hemorrhage in ascending colon but no other pathology. Dr. Winters gen surg recommended admission for monitoring and possible repeat colonoscopy. 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) GERD (gastroesophageal reflux disease) Housing structurally unsound Hyperlipemia Hypertension Incisional hernia (2010) Measles Microalbuminuria due to type 2 diabetes mellitus Morbid obesity with body mass index (BMI) of 40.0 to 49.9 Mumps Nocturnal hypoxemia Obstructive sleep apnea syndrome (11/24/10) Peripheral neuropathy Restless leg syndrome Sleep apnea Testicular pain, unspecified Surgical History History of carpal tunnel release History of cholecystectomy (07/02/09) History of colonoscopy (04/23/04) History of ERCP (07/2009) History of incisional hernia repair (07/27/10) History of left cataract surgery (02/14/17) History of orthopedic surgery (1999) History of orthopedic surgery (2000) History of right cataract surgery (01/31/17) History of surgery of liver (06/23/11) Family History Daughter No problems noted. Father Emphysema of lung Mother Lung cancer Obesity Brother No problems noted. Brother No problems noted. Sister No problems noted. Sister No problems noted. Son No problems noted. Social History household members: spouse Smoking Status: Former smoker Tobacco: How many years used: 25 second hand exposure: Yes (sometimes) alcohol intake: former substance use type: does not use Meds Home Medications and Allergies Home Medications Medication Instructions Recorded Confirmed Type ASPIRIN (Aspirin) 81 mg PO Q DAY ##0 03/24/12 10/13/22 History ASCORBIC ACID (Vitamin C With Rashida 500 mg PO BID ##0 01/02/13 10/13/22 History Hips) CHOLECALCIFEROL (D-3) 1,000 iu PO Q DAY ##0 01/02/13 10/13/22 History Calcium Carbonate/Vitamin D 1 tab PO BID ##0 01/02/13 10/13/22 History (#CALCIUM W/VITAMIN D 600 MG-125 IU) [OXYGEN CONCENTRATOR] ##1 11/15/16 09/05/22 Rx rosuvastatin 20 mg tablet (Crestor) 20 mg PO QDAY ##0 03/29/17 10/13/22 History Lancets 0 dev QID ##120 04/19/17 10/13/22 Rx Disabled Parking Placard #1 ea 07/24/18 10/13/22 Rx Resmed Aircurve 10 BIPAP #1 ea 11/08/18 10/13/22 History olopatadine 0.1 % eye drops 1 drop ophthalmic (eye) BID 04/05/19 10/13/22 History acetaminophen 500 mg capsule 1,000 mg PO TID PRN as needed for 06/24/20 10/13/22 History pain insulin aspart U-100 100 unit/mL 2 unit (0.02 mL) SUBCUT DAILY PRN 02/21/22 10/13/22 Rx (3 mL) subcutaneous pen (Novolog Diabetes #15 mL FlexPen U-100 Insulin aspart) lidocaine-prilocaine 2.5 %-2.5 % 1 g topical TID 02/21/22 10/13/22 History topical cream metoprolol tartrate 25 mg tablet 12.5 mg PO DAILY 02/21/22 10/13/22 History pyridostigmine bromide 60 mg tablet 180 mg PO TID 02/21/22 10/13/22 History Glucose: Home Monitoring Kit #1 ea 05/23/22 10/13/22 Rx Left hand brace #1 ea 05/23/22 10/13/22 Rx blood sugar diagnostic (True See Rx Instructions .Route 05/23/22 10/13/22 Rx Metrix Glucose Test Strip) .COMPLEX #300 ea fluticasone propionate 250 2 inh inhalation Q12H #360 ea 05/23/22 10/13/22 Rx mcg/actuation blister powder for inhalation gabapentin 600 mg tablet 600 mg PO TID #270 tabs 05/23/22 10/13/22 Rx insulin degludec 100 unit/mL (3 26 unit (0.26 mL) SUBCUT QDAY #15 05/23/22 10/13/22 Rx mL) subcutaneous pen (Tresiba mL FlexTouch U-100 insulin) irbesartan 150 mg tablet 150 mg PO QDAY #90 tabs 05/23/22 10/13/22 Rx pen needle, diabetic 31 gauge x See Rx Instructions .Route 05/23/22 10/13/22 Rx 5/16 (Unifine Pentips) .COMPLEX #300 ea tamsulosin 0.4 mg capsule 0.4 mg PO DAILY #90 caps 05/23/22 10/13/22 Rx albuterol sulfate 90 mcg/actuation 2 puff inhalation Q4-6H PRN 07/08/22 10/13/22 Rx aerosol inhaler shortness of breath or wheezing, cough #8.5 grams omeprazole 20 mg capsule,delayed 20 mg PO QDAY #90 caps 08/17/22 10/13/22 Rx release Thumb/wrist splint left ##1 09/05/22 10/13/22 Rx sildenafil (pulm.hypertension) 20 20 mg PO PRN PRN Erectile 10/13/22 10/13/22 History mg tablet Dysfunction Allergies Allergy/AdvReac Type Severity Reaction Status Date / Time hydromorphone [HYDROMORPHONE] Allergy Severe (DILAUDID) Verified 10/13/22 07:58 Got red, had a chicken pox type rash, dizzy shellfish derived Allergy Severe Problems Verified 10/13/22 07:58 [SHELLFISH DERIVED] breathing, vomiting, RASH atorvastatin [ATORVASTATIN] AdvReac Severe (LIPITOR) Verified 10/13/22 07:58 neck and face swelled myalgias insulin detemir AdvReac Severe Diarrhea, Verified 10/13/22 07:58 [From LEVEMIR] sores on skin, bruising nifedipine [NIFEDIPINE] AdvReac Severe EDEMA Verified 10/13/22 07:58 Thiazides [THIAZIDES] AdvReac Severe PANCREATITI Verified 10/13/22 07:58 S insulin glargine AdvReac Intermediate Sweating, Verified 10/13/22 07:58 [From BASAGLAR KWIKPEN] nausea (same as Levemir) Review of Systems Review of Systems Narrative: All other systems reviewed with the patient and are negative unless otherwise stated. Exam Vital Signs (past 8 hours): - 10/13/22 07:53 10/13/22 07:48 10/13/22 07:56 Temperature 98.2 F Pulse Rate 62 62 60 Respiratory Rate 18 21 25 H Blood Pressure 148/83 H Pulse Oximetry 94 95 93 Oxygen Delivery Method Room Air 10/13/22 07:56 10/13/22 08:00 10/13/22 08:00 Temperature Pulse Rate 59 L Respiratory Rate 19 Blood Pressure 117/74 135/69 Pulse Oximetry 93 Oxygen Delivery Method 10/13/22 08:15 10/13/22 08:15 10/13/22 08:30 Temperature Pulse Rate 58 L Respiratory Rate 20 Blood Pressure 141/73 H 148/70 H Pulse Oximetry 94 Oxygen Delivery Method 10/13/22 08:30 Temperature Pulse Rate 63 Respiratory Rate 21 Blood Pressure Pulse Oximetry 94 Oxygen Delivery Method Oxygen Delivery Method Room Air Narrative Exam Narrative: GEN: no acute distress, obese HEENT: moist mucous membranes, PERRL NECK: trachea midline, no JVD CV: regular rate and rhythm, no murmurs PULM: clear bilaterally ABD: soft, mildly tender in lower quadrants, nondistended, no organomegaly EXT: warm and well perfused with no edema NEURO: awake, alert, oriented, no focal deficits Objective Labs 10/13/22 10:08 10/13/22 07:55 Labs: Laboratory Results - last 24 hr 10/13/22 10/13/22 10/13/22 07:55 07:55 07:55 WBC 7.5 RBC 4.46 L Hgb 13.2 L Hct 39.0 L MCV 87.5 MCH 29.7 MCHC 33.9 RDW 15.7 H Plt Count 209 Neut % (Auto) 67.6 Lymph % (Auto) 20.9 L [place] % (Auto) 7.5 Eos % (Auto) 3.0 Baso % (Auto) 1.0 Neut # (Auto) 5100 Lymph # (Auto) 1600 [place] # (Auto) 600 Eos # (Auto) 200 Baso # (Auto) 100 PT 12.8 H INR 1.1 APTT 33 Sodium 139 Potassium 4.0 Chloride 109 H Carbon Dioxide 30 BUN 19 Creatinine 0.71 Estimated GFR > 60 BUN/Creatinine Ratio 26.8 H Glucose 150 H Lactate Calcium 8.6 Total Bilirubin 0.2 AST 27 ALT 27 Alkaline Phosphatase 106 Total Creatine Kinase 276 H CK-MB (CK-2) 1.13 CK-MB (CK-2) Rel Index 0.4 L Troponin I < 0.012 Total Protein 6.6 Albumin 3.6 Globulin 3.0 Albumin/Globulin Ratio 1.2 Blood Type Antibody Screen 10/13/22 10/13/22 10/13/22 07:55 07:55 10:08 WBC RBC Hgb 12.8 L Hct 37.9 L MCV MCH MCHC RDW Plt Count Neut % (Auto) Lymph % (Auto) [place] % (Auto) Eos % (Auto) Baso % (Auto) Neut # (Auto) Lymph # (Auto) [place] # (Auto) Eos # (Auto) Baso # (Auto) PT INR APTT Sodium Potassium Chloride Carbon Dioxide BUN Creatinine Estimated GFR BUN/Creatinine Ratio Glucose Lactate 0.9 Calcium Total Bilirubin AST ALT Alkaline Phosphatase Total Creatine Kinase CK-MB (CK-2) CK-MB (CK-2) Rel Index Troponin I Total Protein Albumin Globulin Albumin/Globulin Ratio Blood Type O Positive Antibody Screen Negative Assessment & Plan Assessment & Plan narrative: # rectal bleeding s/p colonoscopy with polypectomy -underwent colonoscopy on 10/12 with polyps removed, now presenting with 1 day of maroon stools and rectal bleeding -hemoglobin dropped from 13.2 to 12.8 -transfuse at Hgb less than 7 -CT abdomen shows likely hemorrhage of ascending colon at polyp removal site -Dr. Winters general surgery consulted and following -keep NPO in case goes for rescope -trend hemoglobin -hold home aspirin, has not taken since 10/09 # myasthenia gravis -continue home pyridostigmine # hypertension -hold home blood pressure meds in the setting of active bleeding # hyperlipidemia -continue home Crestor # type 2 diabetes -q.6 hour blood glucose checks and regular insulin sliding scale while NPO -last A1c 6.1% in August 2022 # GERD -continue home PPI Code status is full code. COVID negative. DVT prophylaxis with SCDs and setting of bleeding. Proxy is Vanessa. I have reviewed home meds and used all available resources to reconcile the home meds. This patient will be admitted as observation and will require less than 2 midnights of hospital time to treat rectal bleeding.
[2022-10-13 11:27] LABS: COVID19 -Nasal RAPID Negative (Negative)
[2022-10-13] MEDS: SODIUM CHLORIDE 0.9% 1,000 ML 100 ML IV (11:52)
[2022-10-13] MEDS: PYRIDOSTIGMINE 60 MG TABLET 180 MG PO ×2 (12:21→21:38)
[2022-10-13] MEDS: GABAPENTIN 600 MG TABLET PO ×2 (12:21→21:38)
--- NOTE | 2022-10-13 14:03 | PC.NURSE ---
Pt arrived to room 208 this a.m. at 11:11 a.m. He is able to ambulate with slightly steady gait to BR. He is up to BR with bloody stool x1 (1st unmeasured ) 2nd stool is dark red of 2500cc. Pt reports feeling shaky and week after passing bloody BM's SBP 130's-140's and DBP 70's HR 80's-90's. Pt has slight nausea improved with scheduled zofran. BG at noon is 118. IVF NS running at 100 ml/hr. MD Hoover at bedside this afternoon at 1400 and STAT H&H drawn. Continuous monitoring. is supporive at bedside. Call light in reach, bed alarm on. Pt remains NPO.
[2022-10-13 14:17] LABS: Add Manual Diff / Slide Review NO; Basophils Absolute Auto 100 /uL (0-100); Eosinophils Absolute Auto 200 /uL (0-450); Eosinophils Percent Auto 2.3 % (2-4); Hematocrit 36.6 % (41-53); Hemoglobin 12.4 g/dL (13.5-17.5); Lymphocytes Absolute Auto 2100 /uL (1100-4500); Lymphocytes Percent Auto 22.7 % (25-40); Mean Corpuscular HGB Conc 33.7 % (30-36); Mean Corpuscular Hemoglobin 29.6 PG (26-34); Mean Corpuscular Volume 87.7 fL (80-100); Monocytes Absolute Auto 700 /uL (0-900); Monocytes Percent Auto 7.2 % (3-14); Neutrophils Absolute Auto 6100 /uL (1500-7000); Neutrophils Percent Auto 66.8 % (50-75); Platelet Count 202 X10^3/uL (150-400); Red Blood Cell Count 4.18 X10^6/uL (4.5-5.9); Red Cell Distribution Width 15.5 % (11.6-14.8); White Blood Cell Count 9.2 X10^3/uL (4.5-11.0)
--- NOTE | 2022-10-13 14:37 | PC.NURSE ---
pt taken to preop for colonoscopy by preop DENNY Maddox via w/ch at approximately 1430.
--- NOTE | 2022-10-13 15:03 | P.CONS_ITS ---
History of Present Illness Consult details Date Patient Seen: 10/13/22 Time Patient Seen: 15:03 Chief complaint: GI Bleed Narrative: Magdi is a 67-year-old man who had a colonoscopy yesterday by Dr. Webster. Did have 2 polyps removed in 1 of the polyps was bleeding at the time of the procedure but was addressed with cautery. He started bleeding overnight and has continued to have dark red bloody diarrhea. He has been dizzy when standing up. His hemoglobin has been trending down since he was admitted. He did eat dinner last night but he did not eat anything today. Meds Home Medications and Allergies Home Medications Medication Instructions Recorded Confirmed Type ASPIRIN (Aspirin) 81 mg PO Q DAY ##0 03/24/12 10/13/22 History ASCORBIC ACID (Vitamin C With Rashida 500 mg PO BID ##0 01/02/13 10/13/22 History Hips) CHOLECALCIFEROL (D-3) 1,000 iu PO Q DAY ##0 01/02/13 10/13/22 History Calcium Carbonate/Vitamin D 1 tab PO BID ##0 01/02/13 10/13/22 History (#CALCIUM W/VITAMIN D 600 MG-125 IU) rosuvastatin 20 mg tablet (Crestor) 20 mg PO QDAY ##0 03/29/17 10/13/22 History Lancets 0 dev QID ##120 04/19/17 10/13/22 Rx Disabled Parking Placard #1 ea 07/24/18 10/13/22 Rx Resmed Aircurve 10 BIPAP #1 ea 11/08/18 10/13/22 History olopatadine 0.1 % eye drops 1 drop ophthalmic (eye) BID 04/05/19 10/13/22 History acetaminophen 500 mg capsule 1,000 mg PO TID PRN as needed for 06/24/20 10/13/22 History pain insulin aspart U-100 100 unit/mL 2 unit (0.02 mL) SUBCUT DAILY PRN 02/21/22 10/13/22 Rx (3 mL) subcutaneous pen (Novolog Diabetes #15 mL FlexPen U-100 Insulin aspart) lidocaine-prilocaine 2.5 %-2.5 % 1 g topical TID 02/21/22 10/13/22 History topical cream metoprolol tartrate 25 mg tablet 12.5 mg PO DAILY 02/21/22 10/13/22 History pyridostigmine bromide 60 mg tablet 180 mg PO TID 02/21/22 10/13/22 History Glucose: Home Monitoring Kit #1 ea 05/23/22 10/13/22 Rx Left hand brace #1 ea 05/23/22 10/13/22 Rx blood sugar diagnostic (True See Rx Instructions .Route 05/23/22 10/13/22 Rx Metrix Glucose Test Strip) .COMPLEX #300 ea fluticasone propionate 250 2 inh inhalation Q12H #360 ea 05/23/22 10/13/22 Rx mcg/actuation blister powder for inhalation gabapentin 600 mg tablet 600 mg PO TID #270 tabs 05/23/22 10/13/22 Rx insulin degludec 100 unit/mL (3 26 unit (0.26 mL) SUBCUT QDAY #15 05/23/22 10/13/22 Rx mL) subcutaneous pen (Tresiba mL FlexTouch U-100 insulin) irbesartan 150 mg tablet 150 mg PO QDAY #90 tabs 05/23/22 10/13/22 Rx pen needle, diabetic 31 gauge x See Rx Instructions .Route 05/23/22 10/13/22 Rx 5/16 (Unifine Pentips) .COMPLEX #300 ea tamsulosin 0.4 mg capsule 0.4 mg PO DAILY #90 caps 05/23/22 10/13/22 Rx albuterol sulfate 90 mcg/actuation 2 puff inhalation Q4-6H PRN 07/08/22 10/13/22 Rx aerosol inhaler shortness of breath or wheezing, cough #8.5 grams omeprazole 20 mg capsule,delayed 20 mg PO QDAY #90 caps 08/17/22 10/13/22 Rx release Thumb/wrist splint left ##1 09/05/22 10/13/22 Rx sildenafil (pulm.hypertension) 20 20 mg PO PRN PRN Erectile 10/13/22 10/13/22 History mg tablet Dysfunction Allergies Allergy/AdvReac Type Severity Reaction Status Date / Time hydromorphone [HYDROMORPHONE] Allergy Severe (DILAUDID) Verified 10/13/22 07:58 Got red, had a chicken pox type rash, dizzy shellfish derived Allergy Severe Problems Verified 10/13/22 07:58 [SHELLFISH DERIVED] breathing, vomiting, RASH atorvastatin [ATORVASTATIN] AdvReac Severe (LIPITOR) Verified 10/13/22 07:58 neck and face swelled myalgias insulin detemir AdvReac Severe Diarrhea, Verified 10/13/22 07:58 [From LEVEMIR] sores on skin, bruising nifedipine [NIFEDIPINE] AdvReac Severe EDEMA Verified 10/13/22 07:58 Thiazides [THIAZIDES] AdvReac Severe PANCREATITI Verified 10/13/22 07:58 S insulin glargine AdvReac Intermediate Sweating, Verified 10/13/22 07:58 [From BASAGLAR AKOSUAVIRGIL] nausea (same as Levemir) Exam Vital Signs (past 8 hours): - 10/13/22 07:53 10/13/22 07:48 10/13/22 07:56 Temperature 98.2 F Pulse Rate 62 62 60 Respiratory Rate 18 21 25 H Blood Pressure 148/83 H Pulse Oximetry 94 95 93 Oxygen Delivery Method Room Air Oxygen Flow Rate 10/13/22 07:56 10/13/22 08:00 10/13/22 08:00 Temperature Pulse Rate 59 L Respiratory Rate 19 Blood Pressure 117/74 135/69 Pulse Oximetry 93 Oxygen Delivery Method Oxygen Flow Rate 10/13/22 08:15 10/13/22 08:15 10/13/22 08:30 Temperature Pulse Rate 58 L Respiratory Rate 20 Blood Pressure 141/73 H 148/70 H Pulse Oximetry 94 Oxygen Delivery Method Oxygen Flow Rate 10/13/22 08:30 10/13/22 11:34 10/13/22 14:41 Temperature 96.8 F L 97.1 F L Pulse Rate 63 60 69 Respiratory Rate 21 20 15 Blood Pressure 120/80 180/106 H Pulse Oximetry 94 95 96 Oxygen Delivery Method Room Air Oxygen Flow Rate 0 Oxygen Delivery Method Room Air Oxygen Flow Rate 0 Const Nutritional Appearance: obese Objective Labs 10/13/22 14:08 10/13/22 07:55 Labs: Laboratory Results - last 24 hr 10/13/22 10/13/22 10/13/22 07:55 07:55 07:55 WBC 7.5 RBC 4.46 L Hgb 13.2 L Hct 39.0 L MCV 87.5 MCH 29.7 MCHC 33.9 RDW 15.7 H Plt Count 209 Neut % (Auto) 67.6 Lymph % (Auto) 20.9 L [place] % (Auto) 7.5 Eos % (Auto) 3.0 Baso % (Auto) 1.0 Neut # (Auto) 5100 Lymph # (Auto) 1600 [place] # (Auto) 600 Eos # (Auto) 200 Baso # (Auto) 100 PT 12.8 H INR 1.1 APTT 33 Sodium 139 Potassium 4.0 Chloride 109 H Carbon Dioxide 30 BUN 19 Creatinine 0.71 Estimated GFR > 60 BUN/Creatinine Ratio 26.8 H Glucose 150 H Lactate Calcium 8.6 Total Bilirubin 0.2 AST 27 ALT 27 Alkaline Phosphatase 106 Total Creatine Kinase 276 H CK-MB (CK-2) 1.13 CK-MB (CK-2) Rel Index 0.4 L Troponin I < 0.012 Total Protein 6.6 Albumin 3.6 Globulin 3.0 Albumin/Globulin Ratio 1.2 SARS-CoV-2 (PCR) Blood Type Antibody Screen 10/13/22 10/13/22 10/13/22 07:55 07:55 10:08 WBC RBC Hgb 12.8 L Hct 37.9 L MCV MCH MCHC RDW Plt Count Neut % (Auto) Lymph % (Auto) [place] % (Auto) Eos % (Auto) Baso % (Auto) Neut # (Auto) Lymph # (Auto) [place] # (Auto) Eos # (Auto) Baso # (Auto) PT INR APTT Sodium Potassium Chloride Carbon Dioxide BUN Creatinine Estimated GFR BUN/Creatinine Ratio Glucose Lactate 0.9 Calcium Total Bilirubin AST ALT Alkaline Phosphatase Total Creatine Kinase CK-MB (CK-2) CK-MB (CK-2) Rel Index Troponin I Total Protein Albumin Globulin Albumin/Globulin Ratio SARS-CoV-2 (PCR) Blood Type O Positive Antibody Screen Negative 10/13/22 10/13/22 10:56 14:08 WBC 9.2 RBC 4.18 L Hgb 12.4 L Hct 36.6 L MCV 87.7 MCH 29.6 MCHC 33.7 RDW 15.5 H Plt Count 202 Neut % (Auto) 66.8 Lymph % (Auto) 22.7 L [place] % (Auto) 7.2 Eos % (Auto) 2.3 Baso % (Auto) 1.0 Neut # (Auto) 6100 Lymph # (Auto) 2100 [place] # (Auto) 700 Eos # (Auto) 200 Baso # (Auto) 100 PT INR APTT Sodium Potassium Chloride Carbon Dioxide BUN Creatinine Estimated GFR BUN/Creatinine Ratio Glucose Lactate Calcium Total Bilirubin AST ALT Alkaline Phosphatase Total Creatine Kinase CK-MB (CK-2) CK-MB (CK-2) Rel Index Troponin I Total Protein Albumin Globulin Albumin/Globulin Ratio SARS-CoV-2 (PCR) Negative Blood Type Antibody Screen [facility] Medical History Abscess of liver (2010) Angina pectoris (2014) Arthritis of first metatarsophalangeal (MTP) joint of left foot (09/2017) Arthritis of left ankle (09/2017) Bone spur of left foot (09/2017) CAD (coronary artery disease) (04/2016) Chickenpox Chronic low back pain Chronic pain COPD (chronic obstructive pulmonary disease) Coronary artery disease CTS (carpal tunnel syndrome) Diabetes Diastasis recti (2010) Erectile dysfunction 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) GERD (gastroesophageal reflux disease) Housing structurally unsound Hyperlipemia Hypertension Incisional hernia (2010) Measles Microalbuminuria due to type 2 diabetes mellitus Morbid obesity with body mass index (BMI) of 40.0 to 49.9 Mumps Nocturnal hypoxemia Obstructive sleep apnea syndrome (11/24/10) Peripheral neuropathy Restless leg syndrome Sleep apnea Testicular pain, unspecified Surgical History History of carpal tunnel release History of cholecystectomy (07/02/09) History of colonoscopy (04/23/04) History of ERCP (07/2009) History of incisional hernia repair (07/27/10) History of left cataract surgery (02/14/17) History of orthopedic surgery (1999) History of orthopedic surgery (2000) History of right cataract surgery (01/31/17) History of surgery of liver (06/23/11) Family History Daughter No problems noted. Father Emphysema of lung Mother Lung cancer Obesity Brother No problems noted. Brother No problems noted. Sister No problems noted. Sister No problems noted. Son No problems noted. Social History household members: spouse Tobacco & Substance Use Smoking Status: Former smoker Tobacco: How many years used: 25 second hand exposure: Yes (sometimes) alcohol intake: former substance use type: does not use Assessment & Plan Assessment and plan (1) Acute GI bleeding: Status: Acute Plan I recommend that we proceed with a colonoscopy to try to address the bleeding site with a clip. Since he is not had prep this may be difficult and if we can not see we would have to terminate the procedure. He understands the risks and benefits and he would like to proceed.
--- NOTE | 2022-10-13 15:59 | PM.OP.COLON ---
Operative Date/Time/Diagnoses Date of procedure: 10/13/22 Time of procedure: 15:59 Pre-op diagnosis: GI bleeding Post-op diagnosis: same Procedure & Clinicians Study performed: Colonoscopy Same procedure as scheduled: Yes Surgeon: Lew Winters Procedure Notes Procedure in detail: Surgeon: Lew Winters MD Anesthesia: Emil Murillo CRNA Procedure: The patient was brought to the endoscopy suite, placed in left lateral decubitus position. The patient was connected to monitoring devices. A time-out was performed. Sedation was administered. Once the patient was adequately sedated the scope was then inserted and advanced to the cecum where the appendiceal orifice was identified. There was blood throughout the colon. The ascending colon polypectomy site was identified and 3 clips were placed to assure no further bleeding. The transverse polypectomy site was also addressed with 2 clips. The patient was awakened and brought to recovery. Sedation time: 23 minutes Findings: Blood throughout the colon and hemostatic clips applied to both polypectomy sites to ensure no further bleeding Post-procedure Disposition: PACU
--- NOTE | 2022-10-13 16:05 | SUR.PHASEI ---
attempt to call report to floor
--- NOTE | 2022-10-13 16:45 | PC.NURSE ---
Pt returned from PACU at 1620 VSS, afebrile on RA. A&OX4, he denies pain, n/v, SOB or dizziness. Continuous monitoring. BG 87. He is started on a clear liquid diet. MD Hoover provided update to his at bedside via telephone. Family supportive at bedside.
[2022-10-14 00:05] VITALS: BP 136/67; PULSE 60; RESP 18; TEMP 36.2; O2SAT 96
[2022-10-14 05:45] VITALS: BP 113/66; PULSE 58; RESP 18; TEMP 36.2; O2SAT 96
[2022-10-14 06:46] LABS: Add Manual Diff / Slide Review NO; Basophils Absolute Auto 0 /uL (0-100); Basophils Percent Auto 0.5 % (0-2); Eosinophils Absolute Auto 300 /uL (0-450); Eosinophils Percent Auto 3.7 % (2-4); Hematocrit 31.5 % (41-53); Hemoglobin 10.7 g/dL (13.5-17.5); Lymphocytes Absolute Auto 2300 /uL (1100-4500); Mean Corpuscular Hemoglobin 29.7 PG (26-34); Mean Corpuscular Volume 87.4 fL (80-100); Monocytes Absolute Auto 600 /uL (0-900); Monocytes Percent Auto 7.3 % (3-14); Neutrophils Absolute Auto 4800 /uL (1500-7000); Neutrophils Percent Auto 59.5 % (50-75); Platelet Count 194 X10^3/uL (150-400); Red Blood Cell Count 3.61 X10^6/uL (4.5-5.9); Red Cell Distribution Width 15.5 % (11.6-14.8); White Blood Cell Count 8.1 X10^3/uL (4.5-11.0)
[2022-10-14 06:55] LABS: BUN Creatinine Ratio 17.9 (6-22); Blood Urea Nitrogen 14 mg/dL (9-20); Carbon Dioxide 31 mmol/L (22-32); Chloride 108 mmol/L (98-107); Estimated Glomerular Filt Rate > 60 mL/min (>60); Glucose 92 mg/dL (80-110); HEMOLYSIS < 15 (0-50); Potassium 3.8 mmol/L (3.4-5.1); Sodium 138 mmol/L (137-145)
[2022-10-14] MEDS: PANTOPRAZOLE DR 40 MG TABLET PO (08:17)
[2022-10-14] MEDS: TAMSULOSIN 0.4 MG CAPSULE PO (08:17)
[2022-10-14] MEDS: PYRIDOSTIGMINE 60 MG TABLET 180 MG PO ×3 (08:17→20:25)
[2022-10-14] MEDS: GABAPENTIN 600 MG TABLET PO ×3 (08:17→20:29)
[2022-10-14 08:58] VITALS: BP 121/59; PULSE 57; RESP 14; TEMP 36.3; O2SAT 96
--- NOTE | 2022-10-14 16:31 | P.DS_ITS ---
History of Present Illness History of Present Illness Date Patient Seen: 10/14/22 Time Patient Seen: 16:31 Chief complaint: GI Bleed Narrative: Magdi Saxena is a 67yo M with PMH of DM2, CAD, HTN, HLD, EDIN, GERD, morbid obesity and RLS who presents 1 day after colonoscopy which removed 2 polyps now with rectal bleeding. Patient went home following the procedure yesterday and then later that night he developed maroon-colored stools. He then had 3 more overnight and this morning with dark blood that filled the toilet bowl. He felt dizzy and very sweaty but did not pass out. Mild nausea and lower abd pain. He has not taken his home aspirin since 3 days before the colonoscopy. He denies CP, SOB, headache or dizziness. In the ED patient's Hgb went from 13.2 to 12.[address] abd showed likely small hemorrhage in ascending colon but no other pathology. Dr. Winters gen surg recommended admission for monitoring and possible repeat colonoscopy. Discharge Providers Provider Date of admission: 10/13/22 10:42 Discharge Date: 10/14/22 Primary care physician: ANTWON Webster Consults: 10/13/22 10:41 Consult to General Surgery Routine Comment: Consulting Provider: Lew Winters Reason for consultation: rectal bleeding post-polypectomy Has provider been notified: Yes Discharge provider: Fede Rain DO Summary Hospital Course Discharge Diagnosis: # rectal bleeding s/p colonoscopy with polypectomy -underwent colonoscopy on 10/12 with polyps removed, now presenting with 1 day of maroon stools and rectal bleeding -hemoglobin dropped from 13.2>12.8>11>10.7 -transfuse at Hgb less than 7 -CT abdomen shows likely hemorrhage of ascending colon at polyp removal site -Dr. Winters general surgery consulted and following -patient went back for rescope and had clips placed at bleeding sites -Hemoglobin remained stable -bloody stools began to resolve and had brown stools -instructed to hold home aspirin for 1 week # myasthenia gravis -continue home pyridostigmine # hypertension -hold home blood pressure meds in the setting of active bleeding # hyperlipidemia -continue home Crestor # type 2 diabetes -q.6 hour blood glucose checks and regular insulin sliding scale while NPO -last A1c 6.1% in August 2022 # GERD -continue home PPI Hospital Course: Admitted for hadley rectal bleeding following polypectomy the day prior. Hgb downtrended slowly. Had repeat colonoscopy with gen surg who placed clips at polypectomy sites. Bleeding slowed and stopped so patient discharged home. Instructed to hold home aspirin for 1 week and take laxatives to keep himself regular and from getting constipated. Time Spent with Patient Time spent: Greater than 30 minutes Exam Vital Signs (past 8 hours): - 10/14/22 08:58 Temperature 97.4 F L Pulse Rate 57 L Respiratory Rate 14 Blood Pressure 121/59 L Pulse Oximetry 96 Fraction of Inspired Oxygen 28 Oxygen Delivery Method Nasal Cannula Oxygen Flow Rate 2 Narrative Exam Narrative: GEN: no acute distress, obese HEENT: moist mucous membranes, PERRL NECK: trachea midline, no JVD CV: regular rate and rhythm, no murmurs PULM: clear bilaterally ABD: soft, mildly tender in lower quadrants, nondistended, no organomegaly EXT: warm and well perfused with no edema NEURO: awake, alert, oriented, no focal deficits Objective Labs 10/14/22 06:15 10/14/22 06:15 Labs: Laboratory Results - last 24 hr 10/14/22 10/14/22 10/14/22 00:42 06:15 06:15 WBC 8.1 RBC 3.61 L Hgb 11.0 L 10.7 L Hct 31.5 L MCV 87.4 MCH 29.7 MCHC 34.0 RDW 15.5 H Plt Count 194 Neut % (Auto) 59.5 Lymph % (Auto) 29.0 [place] % (Auto) 7.3 Eos % (Auto) 3.7 Baso % (Auto) 0.5 Neut # (Auto) 4800 Lymph # (Auto) 2300 [place] # (Auto) 600 Eos # (Auto) 300 Baso # (Auto) 0 Sodium 138 Potassium 3.8 Chloride 108 H Carbon Dioxide 31 BUN 14 Creatinine 0.78 Estimated GFR > 60 BUN/Creatinine Ratio 17.9 Glucose 92 Calcium 8.0 L PFSH Medical History Abscess of liver (2010) Angina pectoris (2014) Arthritis of first metatarsophalangeal (MTP) joint of left foot (09/2017) Arthritis of left ankle (09/2017) Bone spur of left foot (09/2017) CAD (coronary artery disease) (04/2016) Chickenpox Chronic low back pain Chronic pain COPD (chronic obstructive pulmonary disease) Coronary artery disease CTS (carpal tunnel syndrome) Diabetes Diastasis recti (2010) Erectile dysfunction 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) GERD (gastroesophageal reflux disease) Housing structurally unsound Hyperlipemia Hypertension Incisional hernia (2010) Measles Microalbuminuria due to type 2 diabetes mellitus Morbid obesity with body mass index (BMI) of 40.0 to 49.9 [place] Nocturnal hypoxemia Obstructive sleep apnea syndrome (11/24/10) Peripheral neuropathy Restless leg syndrome Sleep apnea Testicular pain, unspecified Surgical History History of carpal tunnel release History of cholecystectomy (07/02/09) History of colonoscopy (04/23/04) History of ERCP (07/2009) History of incisional hernia repair (07/27/10) History of left cataract surgery (02/14/17) History of orthopedic surgery (1999) History of orthopedic surgery (2000) History of right cataract surgery (01/31/17) History of surgery of liver (06/23/11) Family History Daughter No problems noted. Father Emphysema of lung Mother Lung cancer Obesity Brother No problems noted. Brother No problems noted. Sister No problems noted. Sister No problems noted. Son No problems noted. Social History household members: spouse Smoking Status: Former smoker Tobacco: How many years used: 25 second hand exposure: Yes (sometimes) alcohol intake: former substance use type: does not use Discharge Plan Discharge Plan Patient Disposition: Home Discharge orders & Medications Prescriptions: Continued ASPIRIN (Aspirin) 81 mg PO Q DAY Qty: 0 Calcium Carbonate/Vitamin D (#CALCIUM W/VITAMIN D 600 MG-125 IU) 1 tab PO BID Qty: 0 ASCORBIC ACID (Vitamin C With Rashida Hips) 500 mg PO BID Qty: 0 CHOLECALCIFEROL (D-3) 1,000 iu PO Q DAY Qty: 0 rosuvastatin [Crestor] 20 MG tablet 20 mg PO QDAY Qty: 0 Lancets 0 dev QID Qty: 120 12RF (DME) Disabled Parking Placard Qty: 1 0RF Dose Instruction: As directed Rx Instructions: Patient qualifies for Disabled Parking Placard albuterol sulfate 90 mcg/actuation HFA aerosol inhaler 2 puff inhalation Q4-6H PRN (Reason: shortness of breath or wheezing, cough) Qty: 8.5 3RF Rx Instructions: Inh 2 puffs by mouth every 4-6 hours as needed for SOB, wheezing, cough. omeprazole 20 mg capsule,delayed release(DR/EC) 20 mg PO QDAY Qty: 90 3RF acetaminophen 500 mg capsule 1,000 mg PO TID PRN (Reason: as needed for pain) Rx Instructions: Not to exceed 3000mg in 24 hours True Metrix Glucose Test Strip Strip See Rx Instructions .ROUTE .COMPLEX Qty: 300 3RF Dose Instruction: FOR DIABETES; TEST BLOOD SUGAR 3 TIMES A DAY Rx Instructions: FOR DIABETES; TEST BLOOD SUGAR 3 TIMES A DAY. BRAND PER INSURANCE fluticasone propionate 250 mcg/actuation blister with device 2 inh inhalation Q12H Qty: 360 3RF gabapentin 600 mg tablet 600 mg PO TID Qty: 270 3RF Rx Instructions: Take 1 tab by mouth three times per day for pain (DME) Glucose: Home Monitoring Kit See Rx Instructions .Route .MEDSUPPLY Qty: 1 0RF Rx Instructions: As directed Tresiba FlexTouch U-100 100 unit/mL (3 mL) insulin pen 26 unit SUBCUT QDAY Qty: 15 6RF irbesartan 150 mg tablet 150 mg PO QDAY Qty: 90 3RF pen needle, diabetic [Unifine Pentips] 31 gauge x 5/16 needle See Rx Instructions .ROUTE .COMPLEX Qty: 300 3RF Dose Instruction: TO INJECT 3 TIMES DAILY Rx Instructions: Use to inject insulin three times daily, BRAND PER INSURANCE tamsulosin 0.4 mg capsule 0.4 mg PO DAILY Qty: 90 3RF Rx Instructions: Take 1 tablet daily for prostate health (DME) Left hand brace See Rx Instructions .Route .MEDSUPPLY Qty: 1 0RF Rx Instructions: Wear left hand for wrist pain as needed. (DME) Thumb/wrist splint left See Rx Instructions .Route .MEDSUPPLY Qty: 1 0RF Rx Instructions: Wear thumb/wrist splint on left wrist overnight as needed for pain olopatadine 0.1 % drops 1 drop ophthalmic (eye) BID metoprolol tartrate 25 mg tablet 12.5 mg PO DAILY pyridostigmine bromide 60 mg tablet 180 mg PO TID lidocaine-prilocaine 2.5-2.5 % cream 1 g topical TID Rx Instructions: Apply topically to the occipital head regions three times daily as needed insulin aspart U-100 [Novolog FlexPen U-100 Insulin] 100 unit/mL (3 mL) insulin pen 2 unit SUBCUT DAILY PRN (Reason: Diabetes) Qty: 15 6RF Rx Instructions: 2 units up to 3x daily prn with meals or as directed by provider. Use sliding scale sildenafil (pulm.hypertension) 20 mg tablet 20 mg PO PRN PRN (Reason: Erectile Dysfunction) Rx Instructions: Take 3-5 tablets about one hour prior to sexual activity. Do not take Tamsulosin the day you use this medication. (DME) Resmed Aircurve 10 BIPAP Qty: 1 Dose Instruction: As directed Patient Comments: Pressure: IPAP 12 EPAP 6 DME: [employer] Rx Instructions: As directed Follow up/Referrals: Harriett Parikh ARNP [Primary Care Provider] - Visit Report/Discharge Packet Stand Alone Forms: Patient Portal/API, Stroke Signs & Symptoms Discharge Data Primary Care Provider: Harriett Parikh Attending Provider: Fede Rain Admit Date/Time: 10/13/22 10:42 Quality VTE Deep Vein Thrombosis/Pulmonary Embolism Present on Admission: No
[2022-10-14] MEDS: SODIUM CHLORIDE 0.9% 1,000 ML 1000 ML IV (19:15)
[2022-10-14 19:41] VITALS: O2SAT 96
--- NOTE | 2022-10-14 19:42 | PC.NURSE ---
Pt expected to discharge home this evening after bowel movements brown and patient reports feeling better. However at 1850 patient up to BR for BM and becomes diaphoretic and dizzy. Pt remains dizzy and hypotensive MD notified. Currently receiving NS 1 Liter bolus, and monitoring slow improvement in BP. Endorsed to oncoming RN. Discharge cancelled.
--- NOTE | 2022-10-14 19:46 | P.PN_ITS ---
Subjective Subjective Interval history: Stools began to be less bloody and turn brown today. Was set to discharge but then had a BM of brown stool and immediately after was diaphoretic and had BP with systolic in 70's. Exam Vital Signs (past 8 hours): - 10/14/22 19:41 Pulse Oximetry 96 Oxygen Delivery Method Nasal Cannula Oxygen Flow Rate 2 Fraction of Inspired Oxygen 28 Oxygen Delivery Method Nasal Cannula Oxygen Flow Rate 2 Narrative Exam Narrative: GEN: no acute distress, obese HEENT: moist mucous membranes, PERRL NECK: trachea midline, no JVD CV: regular rate and rhythm, no murmurs PULM: clear bilaterally ABD: soft, mildly tender in lower quadrants, nondistended, no organomegaly EXT: warm and well perfused with no edema NEURO: awake, alert, oriented, no focal deficits Objective Labs 10/14/22 06:15 10/14/22 06:15 Labs: Laboratory Results - last 24 hr 10/14/22 10/14/22 10/14/22 00:42 06:15 06:15 WBC 8.1 RBC 3.61 L Hgb 11.0 L 10.7 L Hct 31.5 L MCV 87.4 MCH 29.7 MCHC 34.0 RDW 15.5 H Plt Count 194 Neut % (Auto) 59.5 Lymph % (Auto) 29.0 [place] % (Auto) 7.3 Eos % (Auto) 3.7 Baso % (Auto) 0.5 Neut # (Auto) 4800 Lymph # (Auto) 2300 [place] # (Auto) 600 Eos # (Auto) 300 Baso # (Auto) 0 Sodium 138 Potassium 3.8 Chloride 108 H Carbon Dioxide 31 BUN 14 Creatinine 0.78 Estimated GFR > 60 BUN/Creatinine Ratio 17.9 Glucose 92 Calcium 8.0 L [facility] Medical History Abscess of liver (2010) Angina pectoris (2014) Arthritis of first metatarsophalangeal (MTP) joint of left foot (09/2017) Arthritis of left ankle (09/2017) Bone spur of left foot (09/2017) CAD (coronary artery disease) (04/2016) Chickenpox Chronic low back pain Chronic pain COPD (chronic obstructive pulmonary disease) Coronary artery disease CTS (carpal tunnel syndrome) Diabetes Diastasis recti (2010) Erectile dysfunction 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) GERD (gastroesophageal reflux disease) Housing structurally unsound Hyperlipemia Hypertension Incisional hernia (2010) Measles Microalbuminuria due to type 2 diabetes mellitus Morbid obesity with body mass index (BMI) of 40.0 to 49.9 Mumps Nocturnal hypoxemia Obstructive sleep apnea syndrome (11/24/10) Peripheral neuropathy Restless leg syndrome Sleep apnea Testicular pain, unspecified Surgical History History of carpal tunnel release History of cholecystectomy (07/02/09) History of colonoscopy (04/23/04) History of ERCP (07/2009) History of incisional hernia repair (07/27/10) History of left cataract surgery (02/14/17) History of orthopedic surgery (1999) History of orthopedic surgery (2000) History of right cataract surgery (01/31/17) History of surgery of liver (06/23/11) Family History Daughter No problems noted. Father Emphysema of lung Mother Lung cancer Obesity Brother No problems noted. Brother No problems noted. Sister No problems noted. Sister No problems noted. Son No problems noted. Social History household members: spouse Smoking Status: Former smoker Tobacco: How many years used: 25 second hand exposure: Yes (sometimes) alcohol intake: former substance use type: does not use Assessment & Plan Assessment & Plan narrative: # rectal bleeding s/p colonoscopy with polypectomy -underwent colonoscopy on 10/12 with polyps removed, now presenting with 1 day of maroon stools and rectal bleeding -hemoglobin dropped from 13.2>12.8>11>10.7 -transfuse at Hgb less than 7 -CT abdomen shows likely hemorrhage of ascending colon at polyp removal site -Dr. Winters general surgery consulted and following -patient went back for rescope and had clips placed at bleeding sites -Hemoglobin remained stable -bloody stools began to resolve and had brown stools -instructed to hold home aspirin for 1 week # acute hypotension -after a BM late in the day he had diaphoresis and sysolic BP of 70's -bolus ordered and BP improving -likely vasovagal but acute GI bleed still possible -monitor for rectal bleeding # myasthenia gravis -continue home pyridostigmine # hypertension -hold home blood pressure meds in the setting of active bleeding # hyperlipidemia -continue home Crestor # type 2 diabetes -q.6 hour blood glucose checks and regular insulin sliding scale while NPO -last A1c 6.1% in August 2022 # GERD -continue home PPI Code status is full code. COVID negative. DVT prophylaxis with SCDs and setting of bleeding. Dispo: Home pending improvement in rectal bleeding and stabilization of BP. Quality VTE Deep Vein Thrombosis/Pulmonary Embolism Present on Admission: No
[2022-10-14 20:00] VITALS: BP 130/62; PULSE 60; RESP 18; TEMP 36.6; O2SAT 95
[2022-10-14 20:19] LABS: Hemoglobin 9.9 g/dL (13.5-17.5); Mean Corpuscular Hemoglobin 29.8 PG (26-34); Mean Corpuscular Volume 87.5 fL (80-100); Platelet Count 182 X10^3/uL (150-400); Red Blood Cell Count 3.31 X10^6/uL (4.5-5.9); Red Cell Distribution Width 15.6 % (11.6-14.8); White Blood Cell Count 8.1 X10^3/uL (4.5-11.0)
[2022-10-15 00:40] VITALS: BP 131/63; PULSE 57; RESP 18; TEMP 37.1; O2SAT 98
[2022-10-15 06:26] LABS: Add Manual Diff / Slide Review NO; Basophils Absolute Auto 100 /uL (0-100); Basophils Percent Auto 0.7 % (0-2); Eosinophils Absolute Auto 200 /uL (0-450); Eosinophils Percent Auto 3.2 % (2-4); Hematocrit 29.6 % (41-53); Lymphocytes Absolute Auto 2100 /uL (1100-4500); Lymphocytes Percent Auto 27.9 % (25-40); Mean Corpuscular HGB Conc 33.9 % (30-36); Mean Corpuscular Hemoglobin 29.8 PG (26-34); Mean Corpuscular Volume 87.9 fL (80-100); Monocytes Absolute Auto 500 /uL (0-900); Neutrophils Absolute Auto 4600 /uL (1500-7000); Neutrophils Percent Auto 61.2 % (50-75); Platelet Count 186 X10^3/uL (150-400); Red Blood Cell Count 3.37 X10^6/uL (4.5-5.9); Red Cell Distribution Width 15.7 % (11.6-14.8); White Blood Cell Count 7.5 X10^3/uL (4.5-11.0)
[2022-10-15 06:35] LABS: BUN Creatinine Ratio 13.7 (6-22); Blood Urea Nitrogen 10 mg/dL (9-20); Calcium 8.1 mg/dL (8.4-10.2); Carbon Dioxide 31 mmol/L (22-32); Chloride 106 mmol/L (98-107); Estimated Glomerular Filt Rate > 60 mL/min (>60); Glucose 95 mg/dL (80-110); HEMOLYSIS < 15 (0-50); Potassium 3.7 mmol/L (3.4-5.1); Sodium 139 mmol/L (137-145)
[2022-10-15] MEDS: PANTOPRAZOLE DR 40 MG TABLET PO (06:35)
[2022-10-15 07:27] VITALS: BP 121/65; PULSE 63; RESP 16; TEMP 36.3; O2SAT 96
[2022-10-15] MEDS: PYRIDOSTIGMINE 60 MG TABLET 180 MG PO (08:17)
[2022-10-15] MEDS: TAMSULOSIN 0.4 MG CAPSULE PO (08:17)
[2022-10-15] MEDS: GABAPENTIN 600 MG TABLET PO (08:17)
--- NOTE | 2022-10-15 09:11 | P.PN_ITS ---
Subjective Subjective Interval history: Yesterday, stools began to be less bloody and turn brown. Was set to discharge but then had a BM of brown stool and immediately after was diaphoretic and had BP with systolic in 70's. Subsequently patient was given intravenous fluid bolus and seemed to stabilize and was stable overnight. Patient ready for discharge. Exam Vital Signs (past 8 hours): - 10/15/22 07:27 Temperature 97.4 F L Pulse Rate 63 Respiratory Rate 16 Blood Pressure 121/65 Pulse Oximetry 96 Oxygen Flow Rate 0 Fraction of Inspired Oxygen 28 Oxygen Delivery Method Nasal Cannula Oxygen Flow Rate 0 Narrative Exam Narrative: GEN: no acute distress, obese HEENT: moist mucous membranes, PERRL NECK: trachea midline, no JVD CV: regular rate and rhythm, no murmurs PULM: clear bilaterally ABD: soft, mildly tender in lower quadrants, nondistended, no organomegaly EXT: warm and well perfused with no edema NEURO: awake, alert, oriented, no focal deficit Objective Labs 10/15/22 06:12 10/15/22 06:12 Labs: Laboratory Results - last 24 hr 10/14/22 10/15/22 10/15/22 20:13 06:12 06:12 WBC 8.1 7.5 RBC 3.31 L 3.37 L Hgb 9.9 L 10.0 L Hct 29.0 L 29.6 L MCV 87.5 87.9 MCH 29.8 29.8 MCHC 34.0 33.9 RDW 15.6 H 15.7 H Plt Count 182 186 Neut % (Auto) 61.2 Lymph % (Auto) 27.9 [place] % (Auto) 7.0 Eos % (Auto) 3.2 Baso % (Auto) 0.7 Neut # (Auto) 4600 Lymph # (Auto) 2100 [place] # (Auto) 500 Eos # (Auto) 200 Baso # (Auto) 100 Sodium 139 Potassium 3.7 Chloride 106 Carbon Dioxide 31 BUN 10 Creatinine 0.73 Estimated GFR > 60 BUN/Creatinine Ratio 13.7 Glucose 95 Calcium 8.1 L [facility] Medical History Abscess of liver (2010) Angina pectoris (2014) Arthritis of first metatarsophalangeal (MTP) joint of left foot (09/2017) Arthritis of left ankle (09/2017) Bone spur of left foot (09/2017) CAD (coronary artery disease) (04/2016) Chickenpox Chronic low back pain Chronic pain COPD (chronic obstructive pulmonary disease) Coronary artery disease CTS (carpal tunnel syndrome) Diabetes Diastasis recti (2010) Erectile dysfunction 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) GERD (gastroesophageal reflux disease) Housing structurally unsound Hyperlipemia Hypertension Incisional hernia (2010) Measles Microalbuminuria due to type 2 diabetes mellitus Morbid obesity with body mass index (BMI) of 40.0 to 49.9 [place]umps Nocturnal hypoxemia Obstructive sleep apnea syndrome (11/24/10) Peripheral neuropathy Restless leg syndrome Sleep apnea Testicular pain, unspecified Surgical History History of carpal tunnel release History of cholecystectomy (07/02/09) History of colonoscopy (04/23/04) History of ERCP (07/2009) History of incisional hernia repair (07/27/10) History of left cataract surgery (02/14/17) History of orthopedic surgery (1999) History of orthopedic surgery (2000) History of right cataract surgery (01/31/17) History of surgery of liver (06/23/11) Family History Daughter No problems noted. Father Emphysema of lung Mother Lung cancer Obesity Brother No problems noted. Brother No problems noted. Sister No problems noted. Sister No problems noted. Son No problems noted. Social History household members: spouse Smoking Status: Former smoker Tobacco: How many years used: 25 second hand exposure: Yes (sometimes) alcohol intake: former substance use type: does not use Assessment & Plan Assessment & Plan narrative: # rectal bleeding s/p colonoscopy with polypectomy -underwent colonoscopy on 10/12 with polyps removed, now presenting with 1 day of maroon stools and rectal bleeding -hemoglobin dropped from 13.2 to 12.8 -transfuse at Hgb less than 7 -CT abdomen shows likely hemorrhage of ascending colon at polyp removal site -Dr. Winters general surgery consulted and following -hemoglobin stable this morning at 10.0 # myasthenia gravis -continue home pyridostigmine # hypertension -hold home blood pressure meds in the setting of active bleeding, stable now and can be re-initiated when discharged # hyperlipidemia -continue home Crestor # type 2 diabetes -last A1c 6.1% in August 2022 -resume regular medication on discharge # GERD -continue home PPI Stable for discharge Code status is full code. COVID negative. DVT prophylaxis with SCDs and setting of bleeding. Proxy is Vanessa. Quality VTE Deep Vein Thrombosis/Pulmonary Embolism Present on Admission: No
--- NOTE | 2022-10-15 15:38 | CM.DPNOTE ---
DC Note Discharge home today w/spouse to assist, close outpatient follow up, no CM needs identified JW
== END 2022-10-15 08:45 | disposition home or self-care (01) | DRG 921 ==
LOC: ED 10:40 → AC 11:59
PROVIDERS: Internal Medicine; Surgery; Admitting Provider Student in an Organized Health Care Education/Training Program; Emergency Provider Emergency Medicine; PCP Nurse Practitioner; Referring Provider Emergency Medicine; Visit Provider Student in an Organized Health Care Education/Training Program
PROC: 0DJD8ZZ Inspection of Lower Intestinal Tract, Via Natural or Artificial Opening Endoscopic (ICD-10-PCS; CPT 45378; principal; 2022-10-13 16:30)
DX: K91.840 Postprocedural hemorrhage of a digestive system organ or structure following a digestive system procedure (principal); G70.00 Myasthenia gravis without (acute) exacerbation; I10 Essential (primary) hypertension; E78.5 Hyperlipidemia, unspecified; E11.9 Type 2 diabetes mellitus without complications; K21.9 Gastro-esophageal reflux disease without esophagitis; G89.29 Other chronic pain; I95.9 Hypotension, unspecified; Z20.822 Contact with and (suspected) exposure to COVID-19; Z79.4 Long term (current) use of insulin; Z87.891 Personal history of nicotine dependence; Z12.11 Encounter for screening for malignant neoplasm of colon; Z80.0 Family history of malignant neoplasm of digestive organs; K57.30 Diverticulosis of large intestine without perforation or abscess without bleeding; D12.6 Benign neoplasm of colon, unspecified
CPT/HCPCS: 36415; 45382; 74177; 80048; 80053; 82550; 82553; 82962; 83605; 84484; 85014; 85018; 85025; 85027; 85610; 85730; 86850; 86900; 86901; 87635; 93005; 94760; 96374; 96375; 99232; 99284; C9803; G0378; C9113; J2405; J2704; Q9967

== ENCOUNTER → 2022-10-31 08:41 | Outpatient (CLI) | payer MEDICARE, MEDICAID, SELFPAY ==
[2022-10-13 11:22] VITALS: BMI 42.0
[2022-10-31 10:22] LABS: BUN Creatinine Ratio 11.3 (6-22); Blood Urea Nitrogen 8 mg/dL (9-20); Calcium 8.6 mg/dL (8.4-10.2); Carbon Dioxide 32 mmol/L (22-32); Chloride 107 mmol/L (98-107); Estimated Glomerular Filt Rate > 60 mL/min (>60); Glucose 109 mg/dL (80-110); HEMOLYSIS < 15 (0-50); Potassium 3.8 mmol/L (3.4-5.1); Sodium 140 mmol/L (137-145)
[2022-10-31 10:23] LABS: Alanine Aminotransferase 22 IU/L (<50); Albumin 3.6 g/dL (3.5-5.0); Albumin Globulin Ratio 1.4 (1.0-2.8); Alkaline Phosphatase 86 U/L (38-126); Aspartate Aminotransferase 19 IU/L (17-59); Bilirubin Total 0.4 mg/dL (0.2-1.3); Bilirubin Unconjugated 0.2 mg/dL (0.0-1.1); Globulin 2.6 g/dL (1.7-4.1); HEMOLYSIS < 15 (0-50); Total Protein 6.2 g/dL (6.3-8.2)
[2022-10-31 10:29] LABS: Creatinine Urine Random 82.5 mg/dL; Protein (Total) Urine Random 56 mg/dL (0-12); Protein Creatinine Ratio Urine 0.67 GRAM/24H
== END ==
PROVIDERS: Physician Assistant Medical; PCP Nurse Practitioner; Referring Provider Internal Medicine Nephrology; Visit Provider Internal Medicine Nephrology
DX: B35.9 Dermatophytosis, unspecified (principal); N05.9 Unspecified nephritic syndrome with unspecified morphologic changes; R80.9 Proteinuria, unspecified
CPT/HCPCS: 36415; 80048; 80076; 82570; 84156

== ENCOUNTER → 2022-12-13 08:05 | Outpatient (CLI) | payer MEDICARE, MEDICAID, SELFPAY ==
[2022-11-07 13:44] VITALS: BMI 42.0
[2022-12-13 10:15] LABS: Creatinine Urine Random 125.3 mg/dL
[2022-12-13 10:34] LABS: Alanine Aminotransferase 24 IU/L (<50); Albumin 4.1 g/dL (3.5-5.0); Albumin Globulin Ratio 1.6 (1.0-2.8); Alkaline Phosphatase 92 U/L (38-126); Aspartate Aminotransferase 21 IU/L (17-59); BUN Creatinine Ratio 15.6 (6-22); Bilirubin Total 0.6 mg/dL (0.2-1.3); Blood Urea Nitrogen 12 mg/dL (9-20); Calcium 8.9 mg/dL (8.4-10.2); Carbon Dioxide 35 mmol/L (22-32); Chloride 105 mmol/L (98-107); Cholesterol 123 mg/dL (140-199); Estimated Glomerular Filt Rate > 60 mL/min (>60); Globulin 2.6 g/dL (1.7-4.1); Glucose 93 mg/dL (80-110); HDL Cholesterol 39 mg/dL (40-60); HEMOLYSIS < 15 (0-50); LDL Cholesterol Calculated 63 mg/dL (<100); Potassium 4.5 mmol/L (3.4-5.1); Sodium 139 mmol/L (137-145); Total Protein 6.7 g/dL (6.3-8.2); Triglycerides 106 mg/dL (35-150)
[2022-12-13 10:39] LABS: Microalbumi Creatinin Ratio Ur 233.8 ug/mg CR (<30); Microalbumin Urine Random 29.3 mg/dL (0-1.6)
[2022-12-14 02:07] LABS: Labcorp Hemoglobin (Hb) A1c 6.6 % (4.8-5.6)
== END ==
PROVIDERS: PCP Nurse Practitioner; Referring Provider Nurse Practitioner; Visit Provider Nurse Practitioner
DX: E11.29 Type 2 diabetes mellitus with other diabetic kidney complication (principal); R80.9 Proteinuria, unspecified; Z79.4 Long term (current) use of insulin; E11.8 Type 2 diabetes mellitus with unspecified complications; G70.00 Myasthenia gravis without (acute) exacerbation; E11.42 Type 2 diabetes mellitus with diabetic polyneuropathy; E78.2 Mixed hyperlipidemia; Z79.899 Other long term (current) drug therapy
CPT/HCPCS: 36415; 80053; 80061; 82043; 82570; 83036

== ENCOUNTER → 2023-02-15 08:28 | Outpatient (CLI) | payer MEDICARE, MEDICAID, SELFPAY ==
[2022-11-07 13:44] VITALS: BMI 42.0
[2023-02-15 09:57] LABS: Alanine Aminotransferase 21 IU/L (<50); Albumin 4.4 g/dL (3.5-5.0); Alkaline Phosphatase 102 U/L (38-126); Aspartate Aminotransferase 21 IU/L (17-59); Bilirubin Total 0.7 mg/dL (0.2-1.3); Blood Urea Nitrogen 15 mg/dL (9-20); Calcium 9.2 mg/dL (8.4-10.2); Carbon Dioxide 31 mmol/L (22-32); Chloride 108 mmol/L (98-107); Estimated Glomerular Filt Rate > 60 mL/min (>60); Globulin 2.2 g/dL (1.7-4.1); Glucose 106 mg/dL (80-110); HEMOLYSIS < 15 (0-50); Magnesium 1.8 mg/dL (1.6-2.3); Potassium 4.2 mmol/L (3.4-5.1); Sodium 140 mmol/L (137-145); Total Protein 6.6 g/dL (6.3-8.2)
[2023-02-17 11:45] LABS: Cholesterol, Total 110 mg/dL (100-199); HDL-Cholesterol 41 mg/dL (>39); HDL-Particle (Total) 31.6 umol/L (>=30.5); LDL Particle 578 nmol/L (<1000); LDL Size 19.7 nm (>20.5); LDL-Cholsterol 51 mg/dL (0-99); LP-IR Score 65 (<=45); Small LDL- Particle 435 nmol/L (<=527); Triglycerides 94 mg/dL (0-149)
== END ==
PROVIDERS: PCP Nurse Practitioner; Referring Provider Specialist; Visit Provider Specialist
DX: I10 Essential (primary) hypertension (principal); E78.5 Hyperlipidemia, unspecified
CPT/HCPCS: 36415; 80053; 80061; 83704; 83735

== ENCOUNTER → 2023-04-10 09:00 | Outpatient (CLI) | payer MEDICARE, MEDICAID, SELFPAY ==
[2022-11-07 13:44] VITALS: BMI 42.0
[2023-04-10 10:25] LABS: Hemoglobin A1C% w Est Avg Glu 5.6 % (4.0-6.0)
[2023-04-10 10:26] LABS: Add Manual Diff / Slide Review NO; Basophils Absolute Auto 0 /uL (0-100); Basophils Percent Auto 0.6 % (0-2); Eosinophils Absolute Auto 0 /uL (0-450); Eosinophils Percent Auto 0.4 % (2-4); Hematocrit 34.3 % (41-53); Hemoglobin 10.7 g/dL (13.5-17.5); Lymphocytes Absolute Auto 600 /uL (1100-4500); Lymphocytes Percent Auto 14.8 % (25-40); Mean Corpuscular HGB Conc 31.1 % (30-36); Mean Corpuscular Hemoglobin 22.4 PG (26-34); Mean Corpuscular Volume 72.1 fL (80-100); Monocytes Absolute Auto 700 /uL (0-900); Monocytes Percent Auto 16.5 % (3-14); Neutrophils Absolute Auto 2800 /uL (1500-7000); Neutrophils Percent Auto 67.7 % (50-75); Platelet Count 187 X10^3/uL (150-400); Red Blood Cell Count 4.77 X10^6/uL (4.5-5.9); Red Cell Distribution Width 19.4 % (11.6-14.8); White Blood Cell Count 4.1 X10^3/uL (4.5-11.0)
[2023-04-10 10:40] LABS: Alanine Aminotransferase 25 IU/L (<50); Albumin 4.4 g/dL (3.5-5.0); Alkaline Phosphatase 93 U/L (38-126); Aspartate Aminotransferase 28 IU/L (17-59); BUN Creatinine Ratio 16.2 (6-22); Bilirubin Total 0.8 mg/dL (0.2-1.3); Blood Urea Nitrogen 12 mg/dL (9-20); Calcium 9.4 mg/dL (8.4-10.2); Carbon Dioxide 32 mmol/L (22-32); Chloride 103 mmol/L (98-107); Cholesterol 91 mg/dL (140-199); Estimated Glomerular Filt Rate > 60 mL/min (>60); Globulin 2.2 g/dL (1.7-4.1); Glucose 89 mg/dL (80-110); HDL Cholesterol 34 mg/dL (40-60); HEMOLYSIS < 15 (0-50); LDL Cholesterol Calculated 40 mg/dL (<100); Sodium 137 mmol/L (137-145); Total Protein 6.6 g/dL (6.3-8.2); Triglycerides 83 mg/dL (35-150)
[2023-04-10 11:05] LABS: Thyroid Stimulating Hormone 0.405 uIU/mL (0.47-4.68)
[2023-04-10 11:27] LABS: Appearance Urine UA SL CLOUDY; Bilirubin Urine UA NEGATIVE (NEGATIVE); Color Urine UA YELLOW; Glucose Urine UA NEGATIVE (Negative); Ketones Urine UA 1+ (NEGATIVE); Leukocyte Esterase Urine UA NEGATIVE (NEGATIVE); Nitrite Urine UA NEGATIVE (Negative); Occult Blood Urine UA TRACE-INTACT (Negative); Protein Urine UA 3+ (Negative); Specific Gravity Urine UA >=1.030 (1.000-1.035); pH Urine UA 5.5 (4.5-8.0)
[2023-04-10 11:48] LABS: Bacteria Urine Many (>30); RBC Urine 0-1/HPF (0-5/HPF); WBC Urine 5-10/HPF (0-5/HPF)
[2023-04-10 11:49] LABS: Culture Indicated Urine Specimen Cultured; Squamous Epithelial Cell Urine 0-1 /HPF (0-5/HPF)
[2023-04-10 17:32] LABS: Creatinine Urine Random 271.7 mg/dL
[2023-04-10 18:23] LABS: Protein (Total) Urine Random 432 mg/dL (0-12); Protein Creatinine Ratio Urine 1.58 GRAM/24H
[2023-04-13 17:16] LABS: HEMOLYSIS < 15 (0-50); Iron 39 ug/dL (49-181)
[2023-04-13 17:27] LABS: Percent Iron Saturation 8 % (20-50); Total Iron Binding Capacity 463 ug/dL (261-462); Transferrin 337 mg/dL (206-381)
[2023-04-13 17:53] LABS: Ferritin 11 ng/mL (18-464)
== END ==
PROVIDERS: Family Medicine; PCP Nurse Practitioner; Referring Provider Nurse Practitioner; Visit Provider Nurse Practitioner
DX: E11.29 Type 2 diabetes mellitus with other diabetic kidney complication (principal); E11.8 Type 2 diabetes mellitus with unspecified complications; E11.9 Type 2 diabetes mellitus without complications; E66.01 Morbid (severe) obesity due to excess calories; E78.2 Mixed hyperlipidemia; R53.83 Other fatigue; R80.9 Proteinuria, unspecified; R30.0 Dysuria
CPT/HCPCS: 36415; 80053; 80061; 81001; 82570; 82728; 83036; 83540; 83550; 84156; 84443; 85025; 87077; 87086; 87186